=== PATIENT | male | born 1950 | race Caucasian/White ===

== ENCOUNTER 2018-05-17 15:27 | Inpatient (IN) ==
[2018-05-17] MEDS ORDERED: Sod Chloride 0.9% Inj 1,000 ML IV.SIG ONE ×3 (16:02→23:30)
[2018-05-17] MEDS ORDERED: Acetaminophen 325 MG Tablet PO ONE (16:02)
--- NOTE | 2018-05-17 16:19 | ED ---
HPI General Chief complaint: Weakness Stated complaint: Weakness Time Seen by Provider: 05/17/18 16:01 Source: patient Mode of arrival: ambulatory Limitations: no limitations History of Present Illness HPI Narrative: patient has h/o lung ca with mets to bone, adrenal and brain...last chemo 5 days ago.....patient denies cp/v/d/backpain/, but has been feeling gen weakness and decreased appetite. [facility] who [facility]bc and ua, apparently adviced pt to go to hospital because of "low white count" and ua that showed UTI. 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 Complaint: Reports generalized weakness Duration: progressively worsening Location: Reports generalized Migration: Reports none Severity: mild Severity scale (1-10): 2 Quality: Reports aching Relieving factors: none Exacerbating factors: none Associated symptoms: Reports loss of appetite Related Data Home Medications Medication Instructions Recorded Confirmed dexamethasone 2 mg PO BID 05/17/18 05/17/18 diltiazem HCl 240 mg PO DAILY 05/17/18 05/17/18 folic acid 1 mg PO DAILY 05/17/18 05/17/18 meloxicam 7.5 mg PO DAILY 05/17/18 05/17/18 mirtazapine 15 mg PO DAILY 05/17/18 05/17/18 omeprazole 20 mg PO BID 05/17/18 05/17/18 ondansetron HCl [Zofran] 4 mg PO QID PRN 05/17/18 05/17/18 oxycodone-acetaminophen 10 mg PO DIRECTED PRN 05/17/18 05/17/18 prochlorperazine maleate 10 mg PO Q6-8H PRN 05/17/18 05/17/18 Allergies Allergy/AdvReac Type Severity Reaction Status Date / Time No Known Allergies Allergy Verified 05/17/18 15:30 Review of Systems ROS: all other systems reviewed are negative PMFSH History History Provided By: Patient Medical History Medical History Atrial fibrillation (Acute) Family history of bone cancer (Acute) History of chemotherapy (Acute) Hx of brain cancer (Acute) Hx of cancer of lung (Acute) Hx of radiation therapy (Acute) Social History Social History Substance History: No History of Abuse Smoking Status: Former smoker How Often Do You Have a Drink Containing Alcohol: 2 to 4 times a month Recent Travel in [facility] within the Last 8 Weeks: No Recent Out of Country Travel within the Last 8 Weeks: No Immunization History Tetanus Immunization: Unsure Exam Narrative Exam Narrative: GENERAL: elderly male in mild distress SKIN: Warm and dry. HEAD: Atraumatic. Normocephalic. EYES: Pupils equal and round. No scleral icterus. No injection or drainage. ENT: No nasal bleeding or discharge. Mucous membranes pink and moist. NECK: Trachea midline. No JVD. CARDIOVASCULAR: Tachycardic rate regular rhythm. no rubs or gallops RESPIRATORY: No accessory muscle use. Clear to auscultation. Breath sounds equal bilaterally. GASTROINTESTINAL: Abdomen soft, non-tender, nondistended. No rebound or guarding MUSCULOSKELETAL: Extremities without clubbing, cyanosis, or edema. No obvious deformities. NEUROLOGICAL: Awake and alert. No obvious cranial nerve deficits. Motor grossly within normal limits. Five out of 5 muscle strength in the arms and legs. Normal speech. PSYCHIATRIC: Appropriate mood and affect; insight and judgment normal. Course Initial Documented Vital Signs Temperature 100.3 F H 05/17/18 15:30 Pulse Rate 127 H 05/17/18 15:30 Respiratory Rate 18 05/17/18 15:30 Blood Pressure 97/61 L 05/17/18 15:30 Pulse Oximetry 92 L 05/17/18 15:30 Last Documented Vital Signs Temperature 99.2 F 05/17/18 17:08 Pulse Rate 101 H 05/17/18 17:08 Respiratory Rate 18 05/17/18 17:08 Blood Pressure 102/60 05/17/18 17:08 Pulse Oximetry 97 05/17/18 17:08 Critical Care Time Critical Care Time: Yes Total Critical Care Time: 30 Attestation: Aggregate critical care time was 30 minutes. Time to perform other separately billable procedures was not included in the critical care time. My time did not include minutes spent treating any other patients simultaneously or on activities that did not directly contribute to the patient's treatment. The services I provided to this patient were to treat and/or prevent clinically significant deterioration. I provided critical care services requiring my management, as noted below: Chart data review, documentation time, medication orders and management, vital sign assessments/reviewing monitor data, ordering and reviewing lab tests, ordering and interpreting/reviewing x-rays and diagnostic studies, care of the patient and discussion of the patient with the admitting physicians. Medical Decision Making MDM Narrative Medical decision making narrative: Lab interpretation: Pancytopenia noted WBC 1.4, H&H of 8.3/25.2, platelet count of 80, without any leukocytosis however absolute neutropenia noted Electrolytes are within normal limits with the exception of calcium, protein corrected calcium low at 7.2. First set of cardiac enzymes negative. elevated lactic acid 3.1 normal liver enzymes UA pending Chest x-ray read by radiologist as nodular densities projecting over the right hemithorax one in the superior perihilar distribution an additional lesion medially in the right's. Chronic interstitial changes with probable fibrosis in the left lung base. Medical Screen Exam Complete: Yes Emergency Medical Condition: Yes Differential Diagnosis Differential Diagnosis: Sepsis versus Sirs versus UTI versus pneumonia versus electrolyte abnormalities versus dehydration versus anemia versus neutropenic fever Medical Records Medical records reviewed: Yes I reviewed the patient's medical records. Lab Data Result diagrams: 05/17/18 16:42 05/17/18 16:42 Lab Results 05/17/18 05/17/18 05/17/18 Range/Units 16:20 16:42 16:42 CBC w Diff Slide review pending WBC 1.4 L (4.0-11.0) th/mm3 RBC 2.75 L (4.50-5.90) mil/mm3 Hgb 8.3 L (13.0-17.0) gm/dL Hct 25.2 L (39.0-51.0) % MCV 91.7 (80.0-100.0) fL MCH 30.1 (27.0-34.0) pg MCHC 32.8 (32.0-36.0) % RDW 20.3 H (11.6-17.2) % Plt Count 80 L (150-450) th/mm3 MPV 6.8 L (7.0-11.0) fL Neut % (Auto) 69.9 (16.0-70.0) % Lymph % (Auto) 14.5 (9.0-44.0) % [place] % (Auto) 14.4 H (0.0-8.0) % Eos % (Auto) 0.9 (0.0-4.0) % Baso % (Auto) 0.3 (0.0-2.0) % Neut # (Auto) 1.0 L (1.8-7.7) th/mm3 Lymph # (Auto) 0.2 L (1.0-4.8) th/mm3 [place] # (Auto) 0.2 (0.0-0.9) th/mm3 Eos # (Auto) 0.0 (0.0-0.4) th/mm3 Baso # (Auto) 0.0 (0.0-0.2) th/mm3 WBC Differential Manual diff final Seg Neuts % (Manual) 65 (16-70) % Band Neuts % (Manual) 9 H (0-6) % Lymphocytes % (Manual) 19 (9-44) % Monocytes % (Manual) 5 (0-8) % Basophils % (Manual) 1 (0-2) % Metamyelocytes % (Man) 1 (0-1) % Abs Neuts (Manual) 1.1 L (1.8-7.7) th/mm3 Differential Comment . Platelet Estimate Low L (Normal) Platelet Morphology Normal (Normal) RBC Morphology Normal (Normal) Sodium 131 L (136-145) meq/L Potassium 3.6 (3.5-5.1) meq/L Chloride 97 L (98-107) meq/L Carbon Dioxide 21.2 (21.0-32.0) meq/L Anion Gap 13 (5-15) meq/L BUN 16 (7-18) mg/dL Creatinine 1.10 (0.60-1.30) mg/dL Estimated GFR 66 L (>89) mL/min POC Glucose 161 H (68-110) mg/dl Random Glucose 156 H (74-106) mg/dL Lactic Acid (0.4-2.0) mmol/L Calcium 6.8 L* (8.5-10.1) mg/dL Prot Corrected Calcium 7.2 L* (8.5-10.1) mg/dL Total Bilirubin 0.7 (0.2-1.0) mg/dL AST 19 (15-37) U/L ALT 30 (12-78) U/L Alkaline Phosphatase 101 (45-117) U/L Total Creatine Kinase 30 L (39-308) U/L Troponin I Less than 0.02 L (0.02-0.05) ng/mL Total Protein 6.4 (6.4-8.2) g/dL Albumin 2.2 L (3.4-5.0) g/dL 05/17/18 Range/Units 16:42 CBC w Diff WBC (4.0-11.0) th/mm3 RBC (4.50-5.90) mil/mm3 Hgb (13.0-17.0) gm/dL Hct (39.0-51.0) % MCV (80.0-100.0) fL MCH (27.0-34.0) pg MCHC (32.0-36.0) % RDW (11.6-17.2) % Plt Count (150-450) th/mm3 MPV (7.0-11.0) fL Neut % (Auto) (16.0-70.0) % Lymph % (Auto) (9.0-44.0) % [place] % (Auto) (0.0-8.0) % Eos % (Auto) (0.0-4.0) % Baso % (Auto) (0.0-2.0) % Neut # (Auto) (1.8-7.7) th/mm3 Lymph # (Auto) (1.0-4.8) th/mm3 [place] # (Auto) (0.0-0.9) th/mm3 Eos # (Auto) (0.0-0.4) th/mm3 Baso # (Auto) (0.0-0.2) th/mm3 WBC Differential Seg Neuts % (Manual) (16-70) % Band Neuts % (Manual) (0-6) % Lymphocytes % (Manual) (9-44) % Monocytes % (Manual) (0-8) % Basophils % (Manual) (0-2) % Metamyelocytes % (Man) (0-1) % Abs Neuts (Manual) (1.8-7.7) th/mm3 Differential Comment Platelet Estimate (Normal) Platelet Morphology (Normal) RBC Morphology (Normal) Sodium (136-145) meq/L Potassium (3.5-5.1) meq/L Chloride (98-107) meq/L Carbon Dioxide (21.0-32.0) meq/L Anion Gap (5-15) meq/L BUN (7-18) mg/dL Creatinine (0.60-1.30) mg/dL Estimated GFR (>89) mL/min POC Glucose (68-110) mg/dl Random Glucose (74-106) mg/dL Lactic Acid 3.1 H (0.4-2.0) mmol/L Calcium (8.5-10.1) mg/dL Prot Corrected Calcium (8.5-10.1) mg/dL Total Bilirubin (0.2-1.0) mg/dL AST (15-37) U/L ALT (12-78) U/L Alkaline Phosphatase (45-117) U/L Total Creatine Kinase (39-308) U/L Troponin I (0.02-0.05) ng/mL Total Protein (6.4-8.2) g/dL Albumin (3.4-5.0) g/dL Imaging Data Radiologist's impression: Chest X-Ray 05/17/18 16:02 CONCLUSION: 1. There appear to be some nodular densities projecting over the right hemithorax, one in the superior perihilar distribution and an additional lesion medially in the right apex. I would recommend a contrasted CT scan of the chest for further evaluation. 2. Chronic interstitial changes with probable fibrosis in the left lung base. 3. Rounded 2 cm calcification in the left upper abdominal quadrant may be related to the spleen. This area can probably be evaluated on CT of the chest as well. ECG Data EKG Prior to Arrival: No Attestation: I personally reviewed and interpreted this ECG as follows: Prior ECG tracings: not available for review Interpretation: Sinus tachycardia, 112 bpm, normal intervals, nonspecific ST-T wave changes, no acute ST elevation [place] pattern noted. Discharge Plan Discharge Disposition Patient Disposition: 30 Still Patient Discharge Condition Condition: Fair Discharge Details Diagnosis: Sepsis, Hypocalcemia, Medication-induced pancytopenia Physicians Team ED Provider: Jah Kauffman Primary Care Provider: Primary Care AbdiaziziToshia Rxs /Orders / Referrals /Forms Prescriptions: No Action oxycodone-acetaminophen 10 mg PO DIRECTED PRN (Reason: Pain) RF: 0 meloxicam 7.5 mg Tablet 7.5 mg PO DAILY RF: 0 ondansetron HCl [Zofran] 4 mg Tablet 4 mg PO QID PRN (Reason: Nausea) RF: 0 prochlorperazine maleate 10 mg Tablet 10 mg PO Q6-8H PRN (Reason: Nausea) RF: 0 dexamethasone 2 mg Tablet 2 mg PO BID RF: 0 omeprazole 20 mg Capsule,Delayed Release(Dr/Ec) 20 mg PO BID RF: 0 folic acid 1 mg Tablet 1 mg PO DAILY RF: 0 mirtazapine 15 mg Tablet 15 mg PO DAILY RF: 0 diltiazem HCl 240 mg Tablet Extended Release 24 Hr 240 mg PO DAILY RF: 0 Discharge Interventions Interventions: Vital Signs Last Done: 05/17/18 17:08 Status ED Status: With Doctor
--- NOTE | 2018-05-17 16:30 | XR ---
EXAM DATE: 05/17/2018 4:16 PM EDT AGE/SEX: 68 years / Male INDICATIONS: Cough and weakness. CLINICAL DATA: This is the patient's initial encounter. Patient reports that signs and symptoms have been present for 2 days and indicates a pain score of 0/10. MEDICAL/SURGICAL HISTORY: Carcinoma, lung. A-fib. None. [place] [facility] [place]. . FINDINGS: A single AP view of the chest demonstrates the lungs to be symmetrically aerated with no confluent in filtrate. There is some chronic interstitial changes with probable fibrosis in the left lung base. No dular densities now project over the right hemithorax, the largest in the superior perihilar distribu tion measuring 3.3 cm in diameter. Heart size is prominent but appears to be well compensated. 2 cm r im calcified density projecting over the left upper abdominal quadrant may be related to the spleen CONCLUSION: 1. There appear to be some nodular densities projecting over the right hemithorax, one in the superi or perihilar distribution and an additional lesion medially in the right apex. I would recommend a co ntrasted CT scan of the chest for further evaluation. 2. Chronic interstitial changes with probable fibrosis in the left lung base. 3. Rounded 2 cm calcification in the left upper abdominal quadrant may be related to the spleen. Thi s area can probably be evaluated on CT of the chest as well. Electronically signed by: Serafin Vera MD 05/17/2018 4:28 PM EDT
[2018-05-17 16:52] LABS: Baso % (Auto) 0.3 % (0.0-2.0); Eos % (Auto) 0.9 % (0.0-4.0); Hematocrit 25.2 % (39.0-51.0); Hemoglobin 8.3 gm/dL (13.0-17.0); Lymph # (Auto) 0.2 th/mm3 (1.0-4.8); Lymph % (Auto) 14.5 % (9.0-44.0); Mean Corpuscular HGB Conc 32.8 % (32.0-36.0); Mean Corpuscular Hemoglobin 30.1 pg (27.0-34.0); Mean Corpuscular Volume 91.7 fL (80.0-100.0); Mean Platelet Volume 6.8 fL (7.0-11.0); Mono # (Auto) 0.2 th/mm3 (0.0-0.9); Mono % (Auto) 14.4 % (0.0-8.0); Neut % (Auto) 69.9 % (16.0-70.0); Platelet Count 80 th/mm3 (150-450); Red Blood Count 2.75 mil/mm3 (4.50-5.90); Red Cell Distribution Width 20.3 % (11.6-17.2); White Blood Count 1.4 th/mm3 (4.0-11.0)
[2018-05-17 17:01] LABS: Chloride 97 meq/L (98-107); Potassium 3.6 meq/L (3.5-5.1); Sodium 131 meq/L (136-145)
[2018-05-17 17:11] LABS: Lymphocytes 19 % (9-44); Metamyelocytes 1 % (0-1); Monocytes 5 % (0-8)
[2018-05-17 17:12] LABS: Platelet Morphology Normal (Normal); RBC Morphology Normal (Normal)
[2018-05-17 17:19] LABS: Alanine Aminotransferase 30 U/L (12-78); Albumin 2.2 g/dL (3.4-5.0); Alkaline Phosphatase 101 U/L (45-117); Anion Gap 13 meq/L (5-15); Aspartate Aminotransferase 19 U/L (15-37); Blood Urea Nitrogen 16 mg/dL (7-18); Calcium 6.8 mg/dL (8.5-10.1); Carbon Dioxide 21.2 meq/L (21.0-32.0); Glomerular Filtration Rate 66 mL/min (>89); Glucose,Random 156 mg/dL (74-106); Total Protein 6.4 g/dL (6.4-8.2)
[2018-05-17 17:21] LABS: Creatine Kinase 30 U/L (39-308)
[2018-05-17] MEDS ORDERED: GENTAMICIN IV.SIG ONE (18:50)
[2018-05-17] MEDS ORDERED: SODIUM CHLOR 0.9% IV.SIG ONE (18:50)
[2018-05-17] MEDS ORDERED: Zolpidem Tartrate 5 MG Tablet PO PRN (18:55)
[2018-05-17] MEDS ORDERED: Bisacodyl 10 MG Supp RECTAL PRN (18:55)
[2018-05-17] MEDS ORDERED: Acetaminophen 325 MG Tablet PO PRN (18:55)
[2018-05-17] MEDS ORDERED: oxyCODONE/Acetaminophen 10/325 Tablet PO PRN (19:06)
[2018-05-17] MEDS: Sod Chloride 0.9% Inj 1,000 ML IV.CONT SCH (20:24)
[2018-05-17] MEDS: Pantoprazole Sodium 20 MG DR Tablet PO SCH (20:48)
[2018-05-17] MEDS: Senna/Docusate Sodium 8.6/50 MG Tablet PO SCH (20:48)
[2018-05-17] MEDS: Mirtazapine 15 MG Tablet PO SCH (21:05)
[2018-05-18 01:04] LABS: Bilirubin,Urine Negative (Negative); Clarity,Urine Clear (Clear); Color,Urine Yellow (Yellw/Straw); Glucose,Urine (UA) Negative (Negative); Leukocyte Esterase,Urine Small (Negative); Nitrite,Urine Negative (Negative); Specific Gravity,Urine 1.015 (1.002-1.035); Urobilinogen,Urine 0.2 mg/dL (Less than 2)
[2018-05-18 01:11] LABS: Bacteria,Urine Moderate /hpf; RBC,Urine 0-3 /hpf (0-3); Squamous Epithelial Cell,Urine 0-5 /hpf (0-5); WBC,Urine 21-50 /hpf (0-5)
[2018-05-18] MEDS ORDERED: Sodium Chloride 0.9% 2 ML Flush PRN IV.FLUSH (01:22)
[2018-05-18] MEDS: Aztreonam Inj 2 GM in Sodium Chloride 0.9% Inj 100 ML IV.SIG SCH ×3 (02:01→18:51)
[2018-05-18 05:30] LABS: Alanine Aminotransferase 23 U/L (12-78); Albumin 1.8 g/dL (3.4-5.0); Alkaline Phosphatase 89 U/L (45-117); Anion Gap 10 meq/L (5-15); Aspartate Aminotransferase 17 U/L (15-37); Blood Urea Nitrogen 16 mg/dL (7-18); Calcium 6.7 mg/dL (8.5-10.1); Carbon Dioxide 20.8 meq/L (21.0-32.0); Chloride 106 meq/L (98-107); Glomerular Filtration Rate Greater Than 89 mL/min (>89); Glucose,Random 102 mg/dL (74-106); Potassium 3.4 meq/L (3.5-5.1); Sodium 137 meq/L (136-145); Total Protein 5.5 g/dL (6.4-8.2)
[2018-05-18 05:34] LABS: Mean Corpuscular Hemoglobin 31.7 pg (27.0-34.0); Mean Corpuscular Volume 90.6 fL (80.0-100.0); Mean Platelet Volume 7.5 fL (7.0-11.0); Platelet Count 53 th/mm3 (150-450); Red Blood Count 2.21 mil/mm3 (4.50-5.90); White Blood Count 1.1 th/mm3 (4.0-11.0)
[2018-05-18] MEDS: Sod Chloride 0.9% Inj 1,000 ML IV.CONT SCH ×2 (05:35→14:54)
[2018-05-18 06:15] LABS: Lymphocytes 21 % (9-44); Metamyelocytes 1 % (0-1); Monocytes 13 % (0-8); Tallied Nucleated RBC 1 (0-0)
[2018-05-18 06:16] LABS: Dimorphic RBC Present; Ovalocytes 1+; Platelet Morphology Normal (Normal)
[2018-05-18] MEDS ORDERED: Mirtazapine 15 MG Tablet PO SCH (09:00)
[2018-05-18] MEDS: Senna/Docusate Sodium 8.6/50 MG Tablet PO SCH ×2 (09:15→20:18)
[2018-05-18] MEDS: Pantoprazole Sodium 20 MG DR Tablet PO SCH ×2 (09:15→20:18)
--- NOTE | 2018-05-18 09:24 | P.HPFP ---
History of Present Illness Primary Care Physician: Dr. Nini Amador ([place]) History of Present Illness: This is a very pleasant 68 yo Male who was diagnosed with lung cancer in January 07. History is provided from the patient and his as well as [facility] plans; [facility] records are not available at this time. He has been undergoing treatment with Dr. Nini Amador at the [facility] in [facility]. He finished a treatment with chemotherapy last . but does not remember the name of the drug. He does remember that he was treated with Ketruda for about a year without side effects. 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 In it was discovered he brain brain metastasis which was treated with radiation. Yesterday he was feeling very week, had very little to drink and was not urinating much, so he went to the [facility] where he reports they did a UA. When he came home from the clinic, he was unable to stand on his own, started to slide to the ground, however his son stopped him from falling. He then presented to the [place] ED. UA was indicative of infection. He received azactam and gentamicin 2 L NS after BC were drawn. Initial lactic acid was 3.1. Over night he had been hypotensive, and he received an additional 3 boluses of 1 L NS overnight for hypotension. Lactic acid has now trended down to normal with stable blood pressure. He is on azactam and cefepime, and vancomycin has been added. He remains very weak, pancytopenic with hemoglobin of 7. Initial anaerobic blood culture has returned with gram negative rods. He also has history of rectal polypoid cancers and large polyps followed by Dr Kevin for 15 years with colonoscopies very 3-4 years (last 01/2017). - Diagnosis (1) UTI (urinary tract infection) (2) Pancytopenia due to chemotherapy (3) Sepsis (4) Hypocalcemia Inpatient Certification: I certify that the inpatient services were ordered in accordance with Medicare regulations governing the order. This includes certification that hospital inpatient services are reasonable and necessary and in the case of services not specified as inpatient-only under 42 CFR 419.22(n), that they are appropriately provided as inpatient services in accordance to with the 2-midnight benchmark under 43 CFR 412.3(e) Estimated Total Length of Stay (Days): 3 Plans for Post Hospital Care: SNF Review of Systems Constitutional: Reports malaise Cardiovascular: Reports chest pain, Reports shortness of breath with activity ( mild, stable at baseline), Denies rapid, pounding, or irregular heartbeat Respiratory: Reports excessive phlegm production, Denies pain on inspiration Gastrointestinal: Reports abdominal pain, Denies bright, red blood in stools Genitourinary: Reports decreased urination, Reports difficulty urinating Musculoskeletal: Reports back pain, Reports muscle weakness Skin/Breast: Denies rash, Denies unusual bruising Neurologic: Reports abnormal walking, Reports unsteadiness Psychiatric: Denies panic attacks, Denies thoughts of hurting/killing yourself Endocrine: Denies increased hunger, Denies increased thirst Hematologic/Lymphatic: Reports easy bruising, Denies enlarged lymph nodes PMFSH - History History Provided By: Patient, Family Member - Medical History Medical History: Medical History (Last Updated 05/18/18 @ 12:43 by Jeanne Tai MD) COPD (chronic obstructive pulmonary disease) (Acute) Chronic interstitial lung disease DJD (degenerative joint disease), lumbar GERD (gastroesophageal reflux disease) HLD (hyperlipidemia) History of chemotherapy History of esophageal stricture Hx of radiation therapy Hypertension 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 cancer metastatic to brain Lung cancer, primary, with metastasis from lung to other site Mild chronic obstructive pulmonary disease Osteoarthritis Overlapping malignant neoplasm of rectum, anus and anal canal Paroxysmal atrial fibrillation Prediabetes Pulmonary fibrosis Rectal polyp - Surgical History Surgical History: Surgical History (Last Updated 05/18/18 @ 09:23 by Jeanne Tai MD) History of total left knee replacement (TKR) - Family History Family History: Family History (Last Reviewed 05/18/18 @ 12:14 by Jeanne Tai MD) Other Family history normal - Social History I have reviewed the patient's Social History: Yes - Tobacco History Second Hand Smoke Exposure: No Tobacco Use In Past 30 Days: No Smoking Status: Former smoker (50 pack year tobacco quit in December 2016) - Alcohol History How Often Do You Have a Drink Containing Alcohol: 2 to 4 times a month - Substance Use History Substance History: No History of Abuse - Travel History Recent Travel in the [place] Within the Last 8 Weeks: No Recent Travel Out of the Country Within the Last 8 Weeks: No - Immunization History Tetanus Immunization: Unsure Hx Influenza Vaccine This Season: Yes Medications and Allergies Active Medications: Active Medications Acetaminophen (Tylenol) 650 mg PO Q4H PRN PRN Reason: Temp > 100.4 Al Hydroxide/Mg Hydroxide (Milk Of Magnesia Liq) 30 ml PO Q12H PRN PRN Reason: Mild Constipation Albuterol (Duoneb Neb (Prn)) 1 ampul NEB Q4HR NEB PRN PRN Reason: wheeze, sob Bisacodyl (Dulcolax Supp) 10 mg RECTAL DAILY PRN PRN Reason: SEVERE CONSITIPATION Dexamethasone (Decadron) 2 mg PO BID [facility] Last Admin: 05/17/18 21:05 Dose: 2 mg Folic Acid (Folic Acid) 1 mg PO DAILY [facility] Cefepime HCl 2,000 mg/ Sodium (Chloride) 100 mls @ 200 mls/hr IV.SIG Q8H [facility] Last Infusion: 05/18/18 04:33 Dose: Infused Aztreonam 2 gm/ Sodium (Chloride) 100 mls @ 200 mls/hr IV.SIG Q8H [facility] Last Infusion: 05/18/18 02:31 Dose: Infused Sodium Chloride (Ns Inj) 1,000 mls @ 100 mls/hr IV.CONT .Q10H [facility] Last Infusion: 05/18/18 06:18 Dose: Infused Lactulose (Lactulose Liq) 30 ml PO DAILY PRN PRN Reason: SEVERE CONSITIPATION Mirtazapine (Remeron) 15 mg PO HS [facility] Last Admin: 05/17/18 21:05 Dose: 15 mg Miscellaneous (Pill Splitter) 1 each OTHER UNSCH [facility] Last Admin: 05/17/18 21:05 Dose: 1 each Ondansetron HCl (Zofran Inj) 4 mg IV.PUSH Q6H PRN PRN Reason: NAUSEA OR VOMITING Oxycodone/Acetaminophen (Percocet 10/325 Mg) 10 tab PO Q6H PRN PRN Reason: Pain 1-5 Pantoprazole Sodium (Protonix) 20 mg PO BID [facility] Last Admin: 05/17/18 20:48 Dose: 20 mg Senna/Docusate Sodium (Hermila-Colace) 1 tab PO BID [facility] Last Admin: 05/17/18 20:48 Dose: 1 tab Sennosides (Senokot) 17.2 mg PO Q12H PRN PRN Reason: Moderate Constipation Sodium Chloride (Ns Flush) 2 ml IV.FLUSH BID MONIK Sodium Chloride (Ns Flush) 2 ml IV.FLUSH PRN PRN PRN Reason: FLUSH AFTER USING IV ACCESS Zolpidem Tartrate (Ambien) 5 mg PO HS PRN PRN Reason: INSOMNIA Last Admin: 05/17/18 22:03 Dose: 5 mg Allergies Allergy/AdvReac Type Severity Reaction Status Date / Time No Known Allergies Allergy Verified 05/17/18 15:30 Home Medications Medication Instructions Recorded Confirmed Type dexamethasone 2 mg PO BID 05/17/18 05/17/18 History diltiazem HCl 240 mg PO DAILY 05/17/18 05/17/18 History folic acid 1 mg PO DAILY 05/17/18 05/17/18 History meloxicam 7.5 mg PO DAILY 05/17/18 05/17/18 History mirtazapine 15 mg PO DAILY 05/17/18 05/17/18 History omeprazole 20 mg PO BID 05/17/18 05/17/18 History ondansetron HCl [Zofran] 4 mg PO QID PRN 05/17/18 05/17/18 History oxycodone-acetaminophen 10 mg PO DIRECTED PRN 05/17/18 05/17/18 History prochlorperazine maleate 10 mg PO Q6-8H PRN 05/17/18 05/17/18 History Exam Vital signs: Vital Signs 05/17/18 15:30 05/17/18 15:57 05/17/18 16:05 Temperature 100.3 F H Pulse Rate 127 H 118 H Respiratory Rate 18 18 Blood Pressure 97/61 L 92/60 L Pulse Oximetry 92 L 95 05/17/18 17:08 05/17/18 18:33 05/17/18 19:22 Temperature 99.2 F 98.2 F 98.1 F Pulse Rate 101 H 81 76 Respiratory Rate 18 16 20 Blood Pressure 102/60 103/59 L 93/57 L Pulse Oximetry 97 96 05/17/18 20:00 05/17/18 20:50 05/17/18 21:00 Temperature 97.6 F Pulse Rate 74 72 Respiratory Rate 11 L 22 Blood Pressure 100/58 L 101/56 L Pulse Oximetry 100 94 L 98 05/17/18 22:00 05/17/18 23:00 05/18/18 00:00 Temperature 98.6 F Pulse Rate 89 79 86 Respiratory Rate 30 H 25 H 20 Blood Pressure 92/53 L 74/38 L 104/64 Pulse Oximetry 91 L 91 L 93 L 05/18/18 01:00 05/18/18 02:00 05/18/18 02:05 Temperature Pulse Rate 122 H 114 H 122 H Respiratory Rate 27 H 25 H Blood Pressure 140/67 102/55 L Pulse Oximetry 93 L 93 L 05/18/18 03:00 05/18/18 04:00 05/18/18 05:00 Temperature 105 F H 100.9 F H Pulse Rate 100 H 91 H Respiratory Rate 21 32 H 19 Blood Pressure 100/50 L 100/50 L 87/52 L Pulse Oximetry 93 L 96 05/18/18 05:39 05/18/18 07:00 Temperature 100.9 F H Pulse Rate 90 82 Respiratory Rate 18 19 Blood Pressure 108/57 L Pulse Oximetry 94 L 95 Intake & Output 05/17/18 05/18/18 05/18/18 18:59 06:59 18:59 Intake Total 1100 / 1100 4651.5 / 4651.5 Output Total 700 / 700 Balance 1100 / 1100 3951.5 / 3951.5 Weight 92.079 kg 93.8 kg Intake: IV 1100 / 1100 4411.5 / 4411.5 NS Inj 1,000 ML @ 100 mls/hr IV 1999 .CONT .Q10H MONIK Rx#:[id number] Azactam Inj 1,000 MG In NS Inj 100 / 100 100 ML @ 200 mls/hr IV.SIG STAT STA Rx#:[id number] Azactam Inj 2 GM In NS Inj 100 100 / 100 ML @ 200 mls/hr IV.SIG Q8H MONIK Rx#:[id number] Maxipime Inj 2,000 MG In NS Inj 200 / 200 100 ML @ 200 mls/hr IV.SIG Q8H MONIK Rx#:[id number] Gentamicin Inj 460 MG In NS Inj 111.5 / 111.5 100 ML @ 100 mls/hr IV.SIG ONCE ONE Rx#:[id number] NS Inj 1,000 ML @ As Directed 1000 / 1000 1999 IV.SIG .Q0M ONE Rx#:[id number] Oral 240 / 240 Output: Urine 700 / 700 Other: # Incontinent Voids 1 # Urine Diapers 1 Date of Last Bowel Movement 05/17/18 # Bowel Movements 1 Weight On Admission 93.8 kg Narrative: GENERAL: This is a fatigued appearing Caucasina male who appears somewhat older than stated age. HEENT: EOMI, no injection, no scleral icterus, dry mucus membranes without lesions, OP patent. CARDIOVASCULAR: Regular rate and rhythm without murmurs, gallops, or rubs. RESPIRATORY: H has crackles in the left lung base which correlate with the area of pulmonary fibrosis seen on chest xray. Lungs are otherwise CTAB, with normal work of breathing and good air exchange. GASTROINTESTINAL: Abdomen soft, non-tender, nondistended. Normal active bowel sounds MUSCULOSKELETAL: Extremities without clubbing, cyanosis, or edema. Right dorsalis pedis easily palpable, left dorsalis pedis present by doppler. SCDs present. NEURO: Somnolent, but becomes Alert & Oriented with vocal stimulation to place. Moves all ext x4 Results - Labs Result diagrams: 05/18/18 11:15 05/18/18 04:48 Abnormal lab results 05/17/18 05/17/18 05/17/18 Range/Units 16:20 16:42 16:42 WBC 1.4 L (4.0-11.0) th/mm3 RBC 2.75 L (4.50-5.90) mil/mm3 Hgb 8.3 L (13.0-17.0) gm/dL Hct 25.2 L (39.0-51.0) % RDW 20.3 H (11.6-17.2) % Plt Count 80 L (150-450) th/mm3 MPV 6.8 L (7.0-11.0) fL [place] % (Auto) 14.4 H (0.0-8.0) % Neut # (Auto) 1.0 L (1.8-7.7) th/mm3 Lymph # (Auto) 0.2 L (1.0-4.8) th/mm3 Band Neuts % (Manual) 9 H (0-6) % Monocytes % (Manual) (0-8) % Abs Neuts (Manual) 1.1 L (1.8-7.7) th/mm3 Nucleated RBCs/100 WBC (0-0) /100 WBC Platelet Estimate Low L (Normal) Dimorphic RBCs (None) Ovalocytes (None) Sodium 131 L (136-145) meq/L Potassium (3.5-5.1) meq/L Chloride 97 L (98-107) meq/L Carbon Dioxide (21.0-32.0) meq/L Estimated GFR 66 L (>89) mL/min POC Glucose 161 H (68-110) mg/dl Random Glucose 156 H (74-106) mg/dL Lactic Acid (0.4-2.0) mmol/L Calcium 6.8 L* (8.5-10.1) mg/dL Prot Corrected Calcium 7.2 L* (8.5-10.1) mg/dL Total Creatine Kinase 30 L (39-308) U/L Troponin I Less than 0.02 L (0.02-0.05) ng/mL Total Protein (6.4-8.2) g/dL Albumin 2.2 L (3.4-5.0) g/dL Urine Protein (Neg-Trace) mg/dL Urine Occult Blood (Negative) Ur Leukocyte Esterase (Negative) Urine WBC (0-5) /hpf Urine WBC Clumps (None) Urine Bacteria (None) /hpf 05/17/18 05/18/18 05/18/18 Range/Units 16:42 00:52 04:48 WBC 1.1 L (4.0-11.0) th/mm3 RBC 2.21 L (4.50-5.90) mil/mm3 Hgb 7.0 L (13.0-17.0) gm/dL Hct 20.0 L* (39.0-51.0) % RDW 20.0 H (11.6-17.2) % Plt Count 53 L D (150-450) th/mm3 MPV (7.0-11.0) fL [place] % (Auto) (0.0-8.0) % Neut # (Auto) (1.8-7.7) th/mm3 Lymph # (Auto) (1.0-4.8) th/mm3 Band Neuts % (Manual) 12 H (0-6) % Monocytes % (Manual) 13 H (0-8) % Abs Neuts (Manual) 0.7 L (1.8-7.7) th/mm3 Nucleated RBCs/100 WBC 1 H (0-0) /100 WBC Platelet Estimate Low L (Normal) Dimorphic RBCs Present H (None) Ovalocytes 1+ H (None) Sodium (136-145) meq/L Potassium (3.5-5.1) meq/L Chloride (98-107) meq/L Carbon Dioxide (21.0-32.0) meq/L Estimated GFR (>89) mL/min POC Glucose (68-110) mg/dl Random Glucose (74-106) mg/dL Lactic Acid 3.1 H (0.4-2.0) mmol/L Calcium (8.5-10.1) mg/dL Prot Corrected Calcium (8.5-10.1) mg/dL Total Creatine Kinase (39-308) U/L Troponin I (0.02-0.05) ng/mL Total Protein (6.4-8.2) g/dL Albumin (3.4-5.0) g/dL Urine Protein 30 H (Neg-Trace) mg/dL Urine Occult Blood Small H (Negative) Ur Leukocyte Esterase Small H (Negative) Urine WBC 21-50 H (0-5) /hpf Urine WBC Clumps Few H (None) Urine Bacteria Moderate H (None) /hpf 05/18/18 Range/Units 04:48 WBC (4.0-11.0) th/mm3 RBC (4.50-5.90) mil/mm3 Hgb (13.0-17.0) gm/dL Hct (39.0-51.0) % RDW (11.6-17.2) % Plt Count (150-450) th/mm3 MPV (7.0-11.0) fL [place] % (Auto) (0.0-8.0) % Neut # (Auto) (1.8-7.7) th/mm3 Lymph # (Auto) (1.0-4.8) th/mm3 Band Neuts % (Manual) (0-6) % Monocytes % (Manual) (0-8) % Abs Neuts (Manual) (1.8-7.7) th/mm3 Nucleated RBCs/100 WBC (0-0) /100 WBC Platelet Estimate (Normal) Dimorphic RBCs (None) Ovalocytes (None) Sodium (136-145) meq/L Potassium 3.4 L (3.5-5.1) meq/L Chloride (98-107) meq/L Carbon Dioxide 20.8 L (21.0-32.0) meq/L Estimated GFR (>89) mL/min POC Glucose (68-110) mg/dl Random Glucose (74-106) mg/dL Lactic Acid (0.4-2.0) mmol/L Calcium 6.7 L* (8.5-10.1) mg/dL Prot Corrected Calcium 7.5 L (8.5-10.1) mg/dL Total Creatine Kinase (39-308) U/L Troponin I (0.02-0.05) ng/mL Total Protein 5.5 L D (6.4-8.2) g/dL Albumin 1.8 L (3.4-5.0) g/dL Urine Protein (Neg-Trace) mg/dL Urine Occult Blood (Negative) Ur Leukocyte Esterase (Negative) Urine WBC (0-5) /hpf Urine WBC Clumps (None) Urine Bacteria (None) /hpf Short CBC 05/17/18 05/18/18 Range/Units 16:42 04:48 WBC 1.4 L 1.1 L (4.0-11.0) th/mm3 Hgb 8.3 L 7.0 L (13.0-17.0) gm/dL Hct 25.2 L 20.0 L* (39.0-51.0) % Plt Count 80 L 53 L D (150-450) th/mm3 BMP 05/17/18 05/18/18 16:42 04:48 Sodium 131 L 137 Potassium 3.6 3.4 L Chloride 97 L 106 D Carbon Dioxide 21.2 20.8 L BUN 16 16 Creatinine 1.10 0.81 Calcium 6.8 L* 6.7 L* Cardiac Enzymes 05/17/18 Range/Units 16:42 Total Creatine Kinase 30 L (39-308) U/L Troponin I Less than 0.02 L (0.02-0.05) ng/mL Liver Function 05/17/18 05/18/18 Range/Units 16:42 04:48 Total Bilirubin 0.7 0.7 (0.2-1.0) mg/dL AST 19 17 (15-37) U/L ALT 30 23 (12-78) U/L Alkaline Phosphatase 101 89 (45-117) U/L Albumin 2.2 L 1.8 L (3.4-5.0) g/dL Urine 05/18/18 Range/Units 00:52 Urine Color Yellow (Yellw/Straw) Urine Clarity Clear (Clear) Urine pH 6.0 (5.0-8.5) Ur Specific [place] 1.015 (1.002-1.035) Urine Protein 30 H (Neg-Trace) mg/dL Urine Glucose (UA) Negative (Negative) mg/dL - Imaging Impressions Chest X-Ray 05/17/18 16:02 CONCLUSION: 1. There appear to be some nodular densities projecting over the right hemithorax, one in the superior perihilar distribution and an additional lesion medially in the right apex. I would recommend a contrasted CT scan of the chest for further evaluation. 2. Chronic interstitial changes with probable fibrosis in the left lung base. 3. Rounded 2 cm calcification in the left upper abdominal quadrant may be related to the spleen. This area can probably be evaluated on CT of the chest as well. Caprini VTE Risk Assessment Caprini VTE Risk Assessment: Moderate/High Risk (score >= 2) VTE Pharmacological Exception Reason: Thrombocytopenia (<50), High risk for bleeding Caprini Risk Assessment Model: Point Value = 1 Point Value = 2 Point Value = 3 Point Value = 5 Age 41-60 Minor surgery BMI > 25 kg/m2 Swollen legs Varicose veins or History of unexplained or recurrent spontaneous Oral contraceptives or hormone replacement Sepsis (< 1 month) Serious lung disease, including pneumonia (< 1 month) Abnormal pulmonary function Acute myocardial infarction Congestive heart failure (< 1 month) History of inflammatory bowel disease Medical patient at bed rest Age 61-74 Arthroscopic surgery Major open surgery (> 45 min) Laparoscopic surgery (> 45 min) Malignancy Confined to bed (> 72 hours) Immobilizing plaster cast Central venous access Age >= 75 History of VTE Family history of VTE Factor V Leiden Prothrombin [id number] Lupus anticoagulant Anticardiolipin antibodies Elevated serum homocysteine Heparin-induced thrombocytopenia Other congenital or acquired thrombophilia Stroke (< 1 month) Elective arthroplasty Hip, pelvis, or leg fracture Acute spinal cord injury (< 1 month) Prophylaxis Regimen: Total Risk Factor Score Risk Level Prophylaxis Regimen 0-1 Low Early ambulation 2 Moderate Order ONE of the following: *Sequential Compression Device (SCD) *Heparin 5000 units SQ BID 3-4 Higher Order ONE of the following medications: *Heparin 5000 units SQ TID *Enoxaparin/Lovenox 40 mg SQ daily (WT < 150 kg, CrCl > 30 mL/min) *Enoxaparin/Lovenox 30 mg SQ daily (WT < 150 kg, CrCl > 10-29 mL/min) *Enoxaparin/Lovenox 30 mg SQ BID (WT < 150 kg, CrCl > 30 mL/min) AND/OR *Sequential Compression Device (SCD) 5 or more Highest Order ONE of the following medications: *Heparin 5000 units SQ TID (Preferred with Epidurals) *Enoxaparin/Lovenox 40 mg SQ daily (WT < 150 kg, CrCl > 30 mL/min) *Enoxaparin/Lovenox 30 mg SQ daily (WT < 150 kg, CrCl > 10-29 mL/min) *Enoxaparin/Lovenox 30 mg SQ BID (WT < 150 kg, CrCl > 30 mL/min) AND *Sequential Compression Device (SCD) Assessment and Plan - Assessment (1) UTI (urinary tract infection) Code(s): N39.0 - Urinary tract infection, site not specified Status: Acute (2) Pancytopenia due to chemotherapy Code(s): D61.810 - Antineoplastic chemotherapy induced pancytopenia Status: Acute (3) Sepsis Code(s): A41.9 - Sepsis, unspecified organism Status: Acute (4) Hypocalcemia Code(s): E83.51 - Hypocalcemia Status: Acute - Assessment and Plan Sepsis likely due to UTI - blood cultures aneorbic initially with gram negative. We will continue with broad antibiotic coverage and consult infectious disease for antibiotic recommendations. Maintain normal blood pressures with bolus as needed. Lactic acid has returned to reji. Lungs are clear. Will check a 2d echo to check LVEF. Pancyotpenia due to chemotherapy due to lung cancer with mets to right hip, adrenal gland, brain (tx'ed with radiation). Hb is 7, I will transfuse 2 units as I think the will help with his energy and fatigue. Will consult hematology for assistance with blood transfusions. [facility]. He is on neutropenic precautions. Paroxysmal afib - reports this happened only once. He remains in [facility] on telemetry. Not a candidate for anticoagulation at this time. MOnitor tele. Hypocalcemia - was treated with calcium gluconate in ER with no improvement. Will repeat calcium gluconate and start calcium carbonate TID and monitor. Hyponatremia - resolved with IVF. Mild COPD -no wheezing, will give duoned as needed. DVT px - SCDs. H&P: Quality - VTE Deep Vein Thrombosis/Pulmonary Embolism Present on Admission: No (3) Sepsis Qualifiers: Sepsis type: sepsis due to unspecified organism Qualified Code(s): A41.9 - Sepsis, unspecified organism
[2018-05-18] MEDS: Folic Acid 1 MG Tablet PO SCH (09:27)
[2018-05-18] MEDS: Sodium Chloride 0.9% 2 ML Flush BID IV.FLUSH SCH ×2 (09:27→22:14)
[2018-05-18 11:26] LABS: Hematocrit 22.8 % (39.0-51.0); Mean Corpuscular HGB Conc 33.1 % (32.0-36.0); Mean Corpuscular Hemoglobin 30.4 pg (27.0-34.0); Mean Corpuscular Volume 91.8 fL (80.0-100.0); Mean Platelet Volume 7.3 fL (7.0-11.0); Platelet Count 62 th/mm3 (150-450); Red Blood Count 2.48 mil/mm3 (4.50-5.90); Red Cell Distribution Width 19.9 % (11.6-17.2); White Blood Count 1.6 th/mm3 (4.0-11.0)
[2018-05-18] MEDS ORDERED: Vancomycin Consult Pharmacy OTHER PRN (11:29)
[2018-05-18 11:32] LABS: Hemoglobin 7.5 gm/dL (13.0-17.0)
[2018-05-18] MEDS ORDERED: Sodium Chlor 0.9% Inj 250 ML IV.SIG SCH (12:00)
--- NOTE | 2018-05-18 13:26 | ECHRPT ---
Indication: Shortness of Breath CONCLUSIONS Normal left ventricular size. Wall thickness is normal. The left ventricular systolic function is normal with an estimated ejection fraction in the range of 55-60%. Right ventricle probably mildly enlarged with moderateli impaired function. Mitral annular calcification is present. [id number] mitral valve regurgitation. There is trace tricuspid valve regurgitation. The estimated pulmonary arterial pressure is 43 mmHg. There is estimated mild pulmonary hypertension present (range 40-50 mmHg). Trivial pulmonary valve regurgitation. There is a small pericardial effusion present. BP: 105 / 62 HR: Rhythm: MEASUREMENTS (Male / Female) Normal Values Technical Quality:Fair 2D ECHO LV Diastolic Diameter PLAX 4.8 cm 4.2 - 5.9 / 3.9 - 5.3 cm LV Systolic Diameter PLAX 3.0 cm IVS Diastolic Thickness 0.9 cm 0.6 - 1.0 / 0.6 - 0.9 cm LVPW Diastolic Thickness 1.0 cm 0.6 - 1.0 / 0.6 - 0.9 cm LV Relative Wall Thickness 0.4 RV Internal Dim ED PLAX 3.3 cm LVOT Diameter 2.2 cm Aortic Root Diameter 3.8 cm LA Systolic Diameter LX 3.5 cm 3.0 - 4.0 / 2.7 - 3.8 cm M-MODE AV Cusp Separation MM 2.3 cm DOPPLER AV Peak Velocity 88.2 cm/s AV Peak Gradient 3.1 mmHg LVOT Peak Velocity 74.0 cm/s LVOT Peak Gradient 2.2 mmHg AV Area Cont Eq pk 3.2 cm Mitral E Point Velocity 73.1 cm/s Mitral A Point Velocity 86.4 cm/s Mitral E to A Ratio 0.8 LV E' Lateral Velocity 5.8 cm/s Mitral E to LV E' Lateral Ratio 12.7 LV E' Septal Velocity 6.1 cm/s Mitral E to LV E' Septal Ratio 11.9 TR Peak Velocity 289.0 cm/s TR Peak Gradient 33.4 mmHg Right Atrial Pressure 10.0 mmHg Pulmonary Artery Systolic Pressu 43.4 mmHg Right Ventricular Systolic Press 43.4 mmHg PV Peak Velocity 89.6 cm/s PV Peak Gradient 3.2 mmHg FINDINGS LEFT VENTRICLE Normal left ventricular size. Wall thickness is normal. The left ventricular systolic function is normal with an estimated ejection fraction in the range of 55-60%. RIGHT VENTRICLE Right ventricle probably mildly enlarged with moderateli impaired function. LEFT ATRIUM The left atrial size is normal. RIGHT ATRIUM The right atrial size is normal. ATRIAL SEPTUM Normal atrial septal thickness without atrial level shunting by limited color doppler interrogation. AORTA The aortic root and proximal ascending aorta are normal in size on limited imaging. MITRAL VALVE Mitral annular calcification is present. [id number] mitral valve regurgitation. AORTIC VALVE Trileaflet aortic valve. No aortic valve stenosis or regurgitation. TRICUSPID VALVE There is trace tricuspid valve regurgitation. The estimated pulmonary arterial pressure is 43 mmHg. There is estimated mild pulmonary hypertension present (range 40-50 mmHg). PULMONARY VALVE Trivial pulmonary valve regurgitation. VESSELS The inferior vena cava is normal in size. PERICARDIUM There is a small pericardial effusion present. Jamie Salazar MD (Electronically Signed) Final Date:18 May 2018 13:26
--- NOTE | 2018-05-18 13:44 | P.CONPAL ---
Consult Service: Palliative Care Requesting Physician: Jeanne Tai Reason for Consult: a. To assist with evaluation and management of symptoms including: Weakness, anorexia, dyspnea, abdominal pain b. To assist medical decision maker(s) with: better understanding of current medical conditions; weighing benefits/burdens of medical treatment options; making medical treatment decisions. 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 Nini Amador at the [facility] and last had chemotherapy 5 days ago. He had previously been treated with Xeloda for a year without side effects but PET scan showed brain metastasis and he was changed back to chemotherapy. At his initial diagnosis he was noted to have metastasis to the adrenal gland and left hip. In December 2017, it was discovered that he also had brain metastasis which has been treated with radiation. At an outpatient visit at the [facility] indicated neutropenia and a urinary tract infection and he was advised to go to the hospital. Diagnostic data on admission * WBC 1.4, hemoglobin 8.3, hematocrit 25.2, platelets 80, sodium 131, potassium 3.6, BUN 16, creatinine 1.10, random glucose 156, calcium 6.8, protein corrected calcium 7.2, normal transaminase, T CK 30, troponin less than 0.02, albumin 2.2, lactic acid 3.1. * Chest x-ray shows some nodular densities projecting over the right hemithorax , one in the superior perihilar distribution and an additional lesion medially in the right apex. Contrasted CT scan recommended for further evaluation. Chronic interstitial changes with probable fibrosis in the left lung. * EKG showed sinus tachycardia at heart rate 112 bpm. * 2D echocardiogram shows ejection fraction 55-60% with mildly enlarged right ventricle with moderate impaired function. Estimated pulmonary artery pressure is 43 mmHg showing mild pulmonary hypertension. Evaluation in the ED showed a positive urinalysis and he received 2 L of normal saline, Azactam and gentamicin after blood cultures were drawn. Presenting lactic acid was 3.1. He was hypotensive overnight and received 3 additional liters of normal saline. Antibiotics were changed to Azactam, vancomycin and cefepime and lactic acid began to trend down. Blood culture shows E. coli. Urine culture is pending. He remains weak, pancytopenic. Initial anaerobic blood culture was returned with gram-negative rods. This is a well-developed, well-nourished male lying in bed on room air , in no acute distress. He is easily arousable but dozes back to sleep quickly. He denies any current pain or dyspnea. He is globally weak and has very little appetite. On admission his complaints of abdominal pain were located in the lower abdomen, constant, worsening with palpation, improving with antibiotics. He has a chronic history of BPH and has been on Flomax for many years. There is no known history of urinary retention, but certainly should be considered in the setting of recurrent UTIs. His states that he tolerates chemotherapy well with minimal side effects. She is aware that the chemotherapy is palliative, not curative. Past medical history COPD Chronic interstitial lung disease DJD GERD Hyperlipidemia Esophageal stricture Hypertension Lung cancer with metastasis to bone, brain, adrenal Osteoarthritis Rheumatoid arthritis Polypoid cancers Paroxysmal atrial fibrillation Prediabetes Pulmonary fibrosis Rectal polyps History of a TIA Surgical history Colonoscopies every 3-4 years with frequent polypectomies Left total knee replacement Rectal polyp resection Social history [id number] tobacco history, quit December 2016. Social alcohol use. No history of abuse. Family history He has 2 living sons that are healthy. . Function/Cognitive Trajectory: He has become weaker over the last year of treatment. He is still able to get around but requires more assistance. He is frequently fatigued and becoming weaker. When chemotherapy was resumed, he became extremely weak and the strength of the chemotherapy had to be reduced. His states that he has been significantly weak since that time. . Review of Systems Constitutional: Reports anorexia, Reports weakness Respiratory: Reports shortness of breath Gastrointestinal: Reports abdominal pain PMFSH - History History Provided By: Patient, Family Member - Medical History Medical History: Medical History (Last Updated 05/18/18 @ 12:43 by Jeanne Tai MD) COPD (chronic obstructive pulmonary disease) (Acute) Chronic interstitial lung disease DJD (degenerative joint disease), lumbar GERD (gastroesophageal reflux disease) HLD (hyperlipidemia) History of chemotherapy History of esophageal stricture Hx of radiation therapy Hypertension 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 cancer metastatic to brain Lung cancer, primary, with metastasis from lung to other site Mild chronic obstructive pulmonary disease Osteoarthritis Overlapping malignant neoplasm of rectum, anus and anal canal Paroxysmal atrial fibrillation Prediabetes Pulmonary fibrosis Rectal polyp - Surgical History Surgical History: Surgical History (Last Updated 05/18/18 @ 09:23 by Jeanne Tai MD) History of total left knee replacement (TKR) - Family History Family History: Family History (Last Reviewed 05/18/18 @ 12:14 by Jeanne Tai MD) Other Family history normal - Tobacco History Second Hand Smoke Exposure: No Tobacco Use In Past 30 Days: No Smoking Status: Former smoker (50 pack year tobacco quit in December 2016) - Alcohol History How Often Do You Have a Drink Containing Alcohol: 2 to 4 times a month - Substance Use History Substance History: No History of Abuse - Travel History Recent Travel in the [place] Within the Last 8 Weeks: No Recent Travel Out of the Country Within the Last 8 Weeks: No - Immunization History Tetanus Immunization: Unsure Hx Influenza Vaccine This Season: Yes Medications and Allergies Active Medications: Active Medications Acetaminophen (Tylenol) 650 mg PO Q4H PRN PRN Reason: Temp > 100.4 Al Hydroxide/Mg Hydroxide (Milk Of Mark Acevedo) 30 ml PO Q12H PRN PRN Reason: Mild Constipation Albuterol (Duoneb Neb (Prn)) 1 ampul NEB Q4HR NEB PRN PRN Reason: wheeze, sob Bisacodyl (Dulcolax Supp) 10 mg RECTAL DAILY PRN PRN Reason: SEVERE CONSITIPATION Calcium Carbonate (Tums Chew) 500 mg CHEW BID MONIK Dexamethasone (Decadron) 2 mg PO BID [facility] Last Admin: 05/18/18 09:13 Dose: 2 mg Folic Acid (Folic Acid) 1 mg PO DAILY MONIK Last Admin: 05/18/18 09:27 Dose: 1 mg Cefepime HCl 2,000 mg/ Sodium (Chloride) 100 mls @ 200 mls/hr IV.SIG Q8H MONIK Last Infusion: 05/18/18 04:33 Dose: Infused Aztreonam 2 gm/ Sodium (Chloride) 100 mls @ 200 mls/hr IV.SIG Q8H MONIK Last Infusion: 05/18/18 10:25 Dose: Infused Sodium Chloride (Ns Inj) 1,000 mls @ 100 mls/hr IV.CONT .Q10H MONIK Last Infusion: 05/18/18 06:18 Dose: Infused Sodium Chloride (Ns Inj) 250 mls @ 15 mls/hr IV.SIG ONCE [facility] Stop: 05/19/18 04:39 Vancomycin HCl 1,700 mg/ (Sodium Chloride) 517 mls @ 250 mls/hr IV.SIG Q12H [facility] Calcium Gluconate 1 gm/ Sodium (Chloride) 110 mls @ 110 mls/hr IV.SIG ONCE ONE Stop: 05/18/18 14:59 Lactulose (Lactulose Liq) 30 ml PO DAILY PRN PRN Reason: SEVERE CONSITIPATION Mirtazapine (Remeron) 15 mg PO HS [facility] Last Admin: 05/17/18 21:05 Dose: 15 mg Miscellaneous (Pill Splitter) 1 each OTHER UNSCH [facility] Last Admin: 05/17/18 21:05 Dose: 1 each Miscellaneous Information ([facility] Ordered Lab Info) 1 each OTHER ONCE ONE Stop: 05/20/18 12:46 Ondansetron HCl (Zofran Inj) 4 mg IV.PUSH Q6H PRN PRN Reason: NAUSEA OR VOMITING Oxycodone/Acetaminophen (Percocet 10/325 Mg) 10 tab PO Q6H PRN PRN Reason: Pain 1-5 Pantoprazole Sodium (Protonix) 20 mg PO BID [facility] Last Admin: 05/18/18 09:15 Dose: 20 mg Pharmacy Profile Note (Vancomycin Consult Pharmacy) 1 each OTHER UNSCH PRN PRN Reason: Pharmacy to dose Potassium Chloride (K-Dur) 20 meq PO ONCE ONE Stop: 05/18/18 13:03 Senna/Docusate Sodium (Hermila-Colace) 1 tab PO BID [facility] Last Admin: 05/18/18 09:15 Dose: Not Given Sennosides (Senokot) 17.2 mg PO Q12H PRN PRN Reason: Moderate Constipation Sodium Chloride (Ns Flush) 2 ml IV.FLUSH BID [facility] Last Admin: 05/18/18 09:27 Dose: 2 ml Sodium Chloride (Ns Flush) 2 ml IV.FLUSH PRN PRN PRN Reason: FLUSH AFTER USING IV ACCESS Zolpidem Tartrate (Ambien) 5 mg PO HS PRN PRN Reason: INSOMNIA Last Admin: 05/17/18 22:03 Dose: 5 mg Allergies Allergy/AdvReac Type Severity Reaction Status Date / Time No Known Allergies Allergy Verified 05/17/18 15:30 Home Medications Medication Instructions Recorded Confirmed Type dexamethasone 2 mg PO BID 05/17/18 05/17/18 History diltiazem HCl 240 mg PO DAILY 05/17/18 05/17/18 History folic acid 1 mg PO DAILY 05/17/18 05/17/18 History meloxicam 7.5 mg PO DAILY 05/17/18 05/17/18 History mirtazapine 15 mg PO DAILY 05/17/18 05/17/18 History omeprazole 20 mg PO BID 05/17/18 05/17/18 History ondansetron HCl [Zofran] 4 mg PO QID PRN 05/17/18 05/17/18 History oxycodone-acetaminophen 10 mg PO DIRECTED PRN 05/17/18 05/17/18 History prochlorperazine maleate 10 mg PO Q6-8H PRN 05/17/18 05/17/18 History Advance Directives Living Will: No Healthcare Surrogate: No Power of Supervising Broker: No Physical Exam Vital Signs: Vital Signs - 24 hr 05/17/18 15:30 05/17/18 15:57 05/17/18 16:05 Temperature 100.3 F H Pulse Rate 127 H 118 H Respiratory Rate 18 18 Blood Pressure 97/61 L 92/60 L Pulse Oximetry 92 L 95 05/17/18 17:08 05/17/18 18:33 05/17/18 19:22 Temperature 99.2 F 98.2 F 98.1 F Pulse Rate 101 H 81 76 Respiratory Rate 18 16 20 Blood Pressure 102/60 103/59 L 93/57 L Pulse Oximetry 97 96 05/17/18 20:00 05/17/18 20:50 05/17/18 21:00 Temperature 97.6 F Pulse Rate 74 72 Respiratory Rate 11 L 22 Blood Pressure 100/58 L 101/56 L Pulse Oximetry 100 94 L 98 05/17/18 22:00 05/17/18 23:00 05/18/18 00:00 Temperature 98.6 F Pulse Rate 89 79 86 Respiratory Rate 30 H 25 H 20 Blood Pressure 92/53 L 74/38 L 104/64 Pulse Oximetry 91 L 91 L 93 L 05/18/18 01:00 05/18/18 02:00 05/18/18 02:05 Temperature Pulse Rate 122 H 114 H 122 H Respiratory Rate 27 H 25 H Blood Pressure 140/67 102/55 L Pulse Oximetry 93 L 93 L 05/18/18 03:00 05/18/18 04:00 05/18/18 05:00 Temperature 105 F H 100.9 F H Pulse Rate 100 H 91 H Respiratory Rate 21 32 H 19 Blood Pressure 100/50 L 100/50 L 87/52 L Pulse Oximetry 93 L 96 05/18/18 05:39 05/18/18 07:00 05/18/18 08:00 Temperature 100.9 F H 98.1 F Pulse Rate 90 82 97 H Respiratory Rate 18 19 18 Blood Pressure 108/57 L 109/61 Pulse Oximetry 94 L 95 96 05/18/18 09:00 05/18/18 10:00 05/18/18 11:00 Temperature Pulse Rate 94 H 84 78 Respiratory Rate 28 H 18 15 Blood Pressure 103/62 96/60 L Pulse Oximetry 95 93 L 93 L 05/18/18 11:29 05/18/18 12:00 Temperature Pulse Rate 72 Respiratory Rate 15 Blood Pressure 105/62 Pulse Oximetry 98 96 I&O: Intake & Output 05/16/18 05/17/18 05/18/18 05/19/18 06:59 06:59 06:59 06:59 Intake Total 5751.5 / 5751.5 100 / 100 Output Total 700 / 700 Balance 5051.5 / 5051.5 100 / 100 Weight 206 lb 12.697 oz Physical Exam: CONSTITUTIONAL/GENERAL: This is a pale, adequately nourished patient, dozing, in no apparent distress. TUBES/LINES/DRAINS: Left AC PIV, right wrist PIV SKIN: No jaundice, rashes, or lesions. Ecchymoses on upper extremities. No wounds seen anteriorly. Skin temperature appropriate. Not diaphoretic. HEAD: Atraumatic. Normocephalic. EYES: Pupils equal and round and reactive. Extraocular motions intact. No scleral icterus. No injection or drainage. Fundi not examined. ENT: Hearing grossly normal. Nose without bleeding or purulent drainage. Throat without visible erythema, exudates, masses, or lesions. NECK: Trachea midline. Supple, nontender. No palpable thyroid enlargement or nodularity. CARDIOVASCULAR: Regular rate and rhythm without murmurs, gallops, or rubs. No JVD. Peripheral pulses symmetric. RESPIRATORY/CHEST: Symmetric, unlabored respirations. Clear to auscultation. Breath sounds equal bilaterally. No wheezes, rales, or rhonchi. GASTROINTESTINAL: Abdomen soft, non-tender, nondistended. No hepato-splenomegaly , or palpable masses. No guarding. Bowel sounds present. GENITOURINARY: Without palpable bladder distension. MUSCULOSKELETAL: Extremities without clubbing, cyanosis, or edema. No joint tenderness or effusion noted. No calf tenderness. No mottling or clubbing. LYMPHATICS: No palpable cervical or supraclavicular adenopathy. NEUROLOGICAL: Dozing off and on. Oriented and pleasant when aroused but falls back to sleep easily, globally weak, moves all extremities. PSYCHIATRIC: No obvious anxiety/depression. no apparent hallucinations or other psychotic thought process. . Diagnostic Tests Laboratory: Laboratory Results - last 72 hr 05/17/18 05/17/18 05/17/18 16:20 16:42 16:42 CBC w Diff Slide review pending WBC 1.4 L RBC 2.75 L Hgb 8.3 L Hct 25.2 L MCV 91.7 MCH 30.1 MCHC 32.8 RDW 20.3 H Plt Count 80 L MPV 6.8 L Neut % (Auto) 69.9 Lymph % (Auto) 14.5 Pine % (Auto) 14.4 H Eos % (Auto) 0.9 Baso % (Auto) 0.3 Neut # (Auto) 1.0 L Lymph # (Auto) 0.2 L Pine # (Auto) 0.2 Eos # (Auto) 0.0 Baso # (Auto) 0.0 WBC Differential Manual diff final Seg Neuts % (Manual) 65 Band Neuts % (Manual) 9 H Lymphocytes % (Manual) 19 Monocytes % (Manual) 5 Basophils % (Manual) 1 Metamyelocytes % (Man) 1 Abs Neuts (Manual) 1.1 L Nucleated RBCs/100 WBC Differential Comment . Platelet Estimate Low L Platelet Morphology Normal RBC Morphology Normal Dimorphic RBCs Ovalocytes Sodium 131 L Potassium 3.6 Chloride 97 L Carbon Dioxide 21.2 Anion Gap 13 BUN 16 Creatinine 1.10 Estimated GFR 66 L POC Glucose 161 H Random Glucose 156 H Lactic Acid Calcium 6.8 L* Prot Corrected Calcium 7.2 L* Total Bilirubin 0.7 AST 19 ALT 30 Alkaline Phosphatase 101 Total Creatine Kinase 30 L Troponin I Less than 0.02 L Total Protein 6.4 Albumin 2.2 L Urine Color Urine Clarity Urine pH Ur Specific [place] Urine Protein Urine Glucose (UA) Urine Ketones Urine Occult Blood Urine Nitrate Urine Bilirubin Urine Urobilinogen Ur Leukocyte Esterase Urine RBC Urine WBC Urine WBC Clumps Ur Squamous Epith Cells Urine Bacteria Micro UA Comment Ur Microscopic Review Urine Culture Comments [facility] Gel Crossmatch 05/17/18 05/17/18 05/17/18 16:42 19:00 23:00 CBC w Diff WBC RBC Hgb Hct MCV MCH MCHC RDW Plt Count MPV Neut % (Auto) Lymph % (Auto) Pine % (Auto) Eos % (Auto) Baso % (Auto) Neut # (Auto) Lymph # (Auto) Pine # (Auto) Eos # (Auto) Baso # (Auto) WBC Differential Seg Neuts % (Manual) Band Neuts % (Manual) Lymphocytes % (Manual) Monocytes % (Manual) Basophils % (Manual) Metamyelocytes % (Man) Abs Neuts (Manual) Nucleated RBCs/100 WBC Differential Comment Platelet Estimate Platelet Morphology RBC Morphology Dimorphic RBCs Ovalocytes Sodium Potassium Chloride Carbon Dioxide Anion Gap BUN Creatinine Estimated GFR POC Glucose Random Glucose Lactic Acid 3.1 H 1.1 1.4 Calcium Prot Corrected Calcium Total Bilirubin AST ALT Alkaline Phosphatase Total Creatine Kinase Troponin I Total Protein Albumin Urine Color Urine Clarity Urine pH Ur Specific [place] Urine Protein Urine Glucose (UA) Urine Ketones Urine Occult Blood Urine Nitrate Urine Bilirubin Urine Urobilinogen Ur Leukocyte Esterase Urine RBC Urine WBC Urine WBC Clumps Ur Squamous Epith Cells Urine Bacteria Micro UA Comment Ur Microscopic Review Urine Culture Comments [facility] Gel Crossmatch 05/18/18 05/18/18 05/18/18 00:52 04:48 04:48 CBC w Diff Slide review pending WBC 1.1 L RBC 2.21 L Hgb 7.0 L Hct 20.0 L* MCV 90.6 MCH 31.7 MCHC 35.0 RDW 20.0 H Plt Count 53 L D MPV 7.5 Neut % (Auto) Lymph % (Auto) Pine % (Auto) Eos % (Auto) Baso % (Auto) Neut # (Auto) Lymph # (Auto) Pine # (Auto) Eos # (Auto) Baso # (Auto) WBC Differential Manual diff final Seg Neuts % (Manual) 53 Band Neuts % (Manual) 12 H Lymphocytes % (Manual) 21 Monocytes % (Manual) 13 H Basophils % (Manual) Metamyelocytes % (Man) 1 Abs Neuts (Manual) 0.7 L Nucleated RBCs/100 WBC 1 H Differential Comment . Platelet Estimate Low L Platelet Morphology Normal RBC Morphology Dimorphic RBCs Present H Ovalocytes 1+ H Sodium 137 Potassium 3.4 L Chloride 106 D Carbon Dioxide 20.8 L Anion Gap 10 BUN 16 Creatinine 0.81 Estimated GFR Greater than 89 POC Glucose Random Glucose 102 Lactic Acid Calcium 6.7 L* Prot Corrected Calcium 7.5 L Total Bilirubin 0.7 AST 17 ALT 23 Alkaline Phosphatase 89 Total Creatine Kinase Troponin I Total Protein 5.5 L D Albumin 1.8 L Urine Color Yellow Urine Clarity Clear Urine pH 6.0 Ur Specific [place] 1.015 Urine Protein 30 H Urine Glucose (UA) Negative Urine Ketones Negative Urine Occult Blood Small H Urine Nitrate Negative Urine Bilirubin Negative Urine Urobilinogen 0.2 Ur Leukocyte Esterase Small H Urine RBC 0-3 Urine WBC 21-50 H Urine WBC Clumps Few H Ur Squamous Epith Cells 0-5 Urine Bacteria Moderate H Micro UA Comment Culture indicated Ur Microscopic Review Microscopic reviewed Urine Culture Comments Culture indicated [facility]TS Gel Crossmatch 05/18/18 05/18/18 05/18/18 11:15 11:15 12:00 CBC w Diff WBC 1.6 L RBC 2.48 L Hgb 7.5 L Hct 22.8 L MCV 91.8 MCH 30.4 MCHC 33.1 RDW 19.9 H Plt Count 62 L MPV 7.3 Neut % (Auto) Lymph % (Auto) Pine % (Auto) Eos % (Auto) Baso % (Auto) Neut # (Auto) Lymph # (Auto) Pine # (Auto) Eos # (Auto) Baso # (Auto) WBC Differential Seg Neuts % (Manual) Band Neuts % (Manual) Lymphocytes % (Manual) Monocytes % (Manual) Basophils % (Manual) Metamyelocytes % (Man) Abs Neuts (Manual) Nucleated RBCs/100 WBC Differential Comment Platelet Estimate Platelet Morphology RBC Morphology Dimorphic RBCs Ovalocytes Sodium Potassium Chloride Carbon Dioxide Anion Gap BUN Creatinine Estimated GFR POC Glucose Random Glucose Lactic Acid 0.9 Calcium Prot Corrected Calcium Total Bilirubin AST ALT Alkaline Phosphatase Total Creatine Kinase Troponin I Total Protein Albumin Urine Color Urine Clarity Urine pH Ur Specific [place] Urine Protein Urine Glucose (UA) Urine Ketones Urine Occult Blood Urine Nitrate Urine Bilirubin Urine Urobilinogen Ur Leukocyte Esterase Urine RBC Urine WBC Urine WBC Clumps Ur Squamous Epith Cells Urine Bacteria Micro UA Comment Ur Microscopic Review Urine Culture Comments [facility] Gel Crossmatch See Detail Result Diagrams: 05/18/18 11:15 05/18/18 04:48 Microbiology: Microbiology 05/17/18 16:05 Aerobic Blood Culture - Preliminary Blood - Peripheral No growth in 1 day Anaerobic Blood Culture - Preliminary Escherichia coli 05/17/18 16:05 Aerobic Blood Culture - Preliminary Blood - Peripheral No growth in 1 day Anaerobic Blood Culture - Preliminary No growth in 1 day 05/17/18 16:20 Influenza Types A,B Antigen - Final Nasal Wash Negative for FLU A and B antigen Infection due to influenza A or B cannot be ruled out since the antigen present in the sample may be below the detection limit of the test. Imaging: Chest X-Ray 05/17/18 16:02 CONCLUSION: 1. There appear to be some nodular densities projecting over the right hemithorax, one in the superior perihilar distribution and an additional lesion medially in the right apex. I would recommend a contrasted CT scan of the chest for further evaluation. 2. Chronic interstitial changes with probable fibrosis in the left lung base. 3. Rounded 2 cm calcification in the left upper abdominal quadrant may be related to the spleen. This area can probably be evaluated on CT of the chest as well. Patient/Family Conference Present at Family Conference: Spoke with at bedside. Patient is dozing off and on and participates minimally in the conversation. His provides most of the history. She states that they do have a living will and a healthcare surrogate at home but need to have it witnessed. I have requested that she bring it to the hospital where witnessing can be completed and it can be entered into the system. She states that she is the healthcare surrogate which would be consistent with [place] statutes which would make her the proxy decision-maker. She has 2 sons , Ayo and Marvin who live locally, who would be the alternate proxy decision makers if the were unavailable or unwilling to serve. She states that it was his plan to continue chemotherapy if possible, as he tolerates it well. CODE STATUS was discussed and at this time, she wishes for him to remain a FULL CODE. Goals remain aggressive at this time. . Family Conference Location: Bedside Issues Discussed: * Palliative care role, purpose, approach * Additional medical, psychosocial, and spiritual history * Patients general health, functional status, and cognitive changes in the months leading up to the current hospitalization * Patient/family understanding of the current medical problems * Patient/family understanding of prognosis * Patients goals of care as best understood from advance directives and/or conversations and/or values * Current medical treatment options and benefits/burdens of those options * Likely scenarios comparing ongoing aggressive care with a transition to comfort measures only * Questions answered to the best of my ability * Palliative care contact information provided Assessment and Plan Pertinent Non-Medical Issues: Psychosocial: He was born in [place], [place] and has been to his for 50 years. 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 He has 2 sons who live locally. Spiritual: Finish Carpenter available. Legal: No advance directives available. Ethical issues impacting care: None noted. Important Contacts: : Sybil villar Son: Ayo Garza . Prognosis: His prognosis is guarded. He has a history of polyploid adenocarcinomas requiring frequent colonoscopies. He now has been diagnosed with lung cancer in December 2016 with metastasis to bone, brain and adrenals. [facility] and presents with profound weakness, sepsis, UTI. He was treated with Xeloda for 10 months but developed brain metastasis and was placed back on chemotherapy. He is experiencing recurrent urinary tract infections and is pancytopenic, now on neutropenic precautions for a white blood cell count of 1.6, absolute neutrophils 0.7. He is at significant risk for continued complications, decline and rehospitalizations. . Code Status: Full Code Plan: PLAN: Legal decision maker: While patient appears capacitated for decision-making, he is extremely weak and exhausted. He would benefit from shared decision making with his who states she is his healthcare surrogate. Lacking that paperwork, per [place] statutes, she would be the designated healthcare decision maker by proxy. Goals: Aggressive. CODE STATUS: FULL CODE SYMPTOMS: * Weakness: He is globally weak, generally fatigued. This is likely multifactorial to include debility, anemia, poor performance status secondary to stage IV cancer. Physical therapy was ordered however he was awaiting blood transfusion and so therapy was held. He would benefit from physical therapy and possibly a nutritional consultation, as he is total protein is 5.5 and albumin 1.8. * Anorexia: Multifactorial to include overall weakness, chemotherapy and the metastatic process. Nutritional consultation may be of assistance. * Dyspnea: Currently on room air and eupneic. His presenting dyspnea was likely exacerbated by sepsis, hypotension. Currently stable. * Abdominal pain: Likely related to the UTI, currently resolved. As UTIs have been recurrent and the patient has BPH, on Flomax, would recommend a post void bladder scan to evaluate possible urinary retention as a risk factor for recurrent UTIs. SUMMARY This is a 68-year-old male with a history of polypoid adenocarcinoma, now diagnosed with lung cancer with metastasis to brain, bone and adrenals. He is followed by the [facility] and is receiving palliative chemotherapy. Per my discussion with his , it is the patient's intention to continue chemotherapy at this time. Given his terminal, metastatic process, he is at elevated risk for continued complications, decline and readmissions. He would be hospice appropriate if goals were consistent. Palliative care will continue to follow the patient during hospital course as condition evolves, to assist patient/decision-maker with understanding of their medical conditions, weighing benefits/burdens of treatment options, for clarification of goals of treatment. Additionally will assist with any symptoms of palliative concern. . Appreciation Thank you for the opportunity to participate in the care of Perry Garza. Attestation Attestation: To help prompt me to consider important information that might be impacting today's encounter and assessment, information from prior notes written by myself or my colleagues may have been "brought forward" into today's note. My signature on this note, however, is an attestation that I personally performed the exam, history, and/or decision-making noted today, and, unless otherwise indicated, the interactions with patient, family, and staff as well as the review of records all occurred today. I also attest that the listed assessment and stated plan reflect my best clinical judgment today based on the combination of historical information, prior notes, and today's exam/ interactions. When time spent is documented, it refers only to time spent today by the signer, or if indicated, combined time spent today by collaborating physician/nurse practitioner. .
[2018-05-18] MEDS ORDERED: Calcium Gluconate Inj 1 GM in Sodium Chlor 0.9% Inj 100 ML IV.SIG ONE (14:00)
[2018-05-18] MEDS: Vancomycin Inj 1,700 MG in Sodium Chlor 0.9% Inj 500 ML IV.SIG SCH (14:39)
[2018-05-18] MEDS ORDERED: Sod Chloride 0.9% Inj 1,000 ML IV.CONT SCH (18:45)
--- NOTE | 2018-05-18 19:47 | MB ---
cc: Nate Cates MD DATE: 05/18/2018 REQUESTING PHYSICIAN: Dr. Tai. REASON: Sepsis and pancytopenia. HISTORY OF PRESENT ILLNESS: This is a 68-year-old white male with metastatic lung cancer. The patient has been receiving chemotherapy. He received chemotherapy last week. The patient presented to the emergency department with profound weakness. His chemotherapy was completed 5 days ago. His states that he was doing well up until 2 days ago, when he stopped eating, said that he was not feeling well, and was markedly weak. He was evaluated at the [facility], and they did lab work, and sent him to the emergency department because of neutropenia, and also urinalysis indicated UTI. The patient was noted to have a temperature of 100.3. His white blood cell count was low at 1.4. His platelet count was also low at 80, and has now decreased to 62. He is awake and alert. He tells me that he really has no pain or other major symptoms, and that he feels better than he did yesterday. His notes that he has had decreased urine. Blood culture from 05/17/2018 has E coli in 1 of 4 bottles. Urine culture is pending. Chest x-ray was performed, and it showed a rounded calcification at the left upper abdominal quadrant, which may be related to the spleen. The patient has no cough or shortness of breath. PAST MEDICAL HISTORY: 1. 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 History of chemotherapy and radiation therapy. 2. COPD. 3. Gastroesophageal reflux disease. 4. History of esophageal stricture. 5. Hypertension. 6. Osteoarthritis. 7. Pulmonary fibrosis. 8. History of malignant neoplasm of the rectum, anus, and anal canal. 9. Left total knee replacement. ALLERGIES: NO KNOWN DRUG ALLERGIES. MEDICATIONS: Aztreonam, cefepime, Decadron, folic acid, Remeron, Protonix, vancomycin, Ambien. SOCIAL HISTORY: The patient is . HABITS: The patient has a history of smoking in the past. Occasional alcohol use. No illicit drugs. FAMILY HISTORY: Noncontributory. REVIEW OF SYSTEMS: All systems have been reviewed and are negative, except for features as mentioned in history of present illness. PHYSICAL EXAMINATION: GENERAL: This is a well-developed male who is in no acute distress. He is awake, alert, and oriented. VITAL SIGNS: Temperature 98.1, BP 96/56, respirations 14, heart rate 72. HEENT: The head is atraumatic. Extraocular movements are grossly intact. Pupils reactive to light. No icterus. Oropharynx: Moist mucosa. No visible lesions. NECK: Supple without adenopathy. LUNGS: Coarse bilateral rhonchi. HEART: Regular S1 and S2 without murmurs, rubs or gallops. ABDOMEN: Bowel sounds present. Soft. No tenderness appreciated. RECTAL: Not performed. EXTREMITIES: No clubbing, cyanosis or edema. SKIN: No rash. NEUROLOGIC: No gross focal finding. The patient is alert and oriented x3. PSYCHIATRIC: The patient is calm and cooperative. LABORATORY DATA: WBC 1.6, platelets 62, hemoglobin 7.5. Creatinine 0.81, BUN 16, sodium 137. Liver function test normal. IMPRESSION: 1. Gram-negative sepsis due to Escherichia coli arising from urinary tract infection. 2. Urinary tract infection. 3. Fever and neutropenia. 4. Metastatic lung cancer. The patient is status post chemotherapy 5 days ago. RECOMMENDATIONS: 1. Continue aztreonam. 2. Continue cefepime. 3. Monitor the sensitivity of the bacteria in the blood. 4. Continue vancomycin in light of neutropenia. 5. Monitor temperature. 6. Monitor clinical response. Thank you for this consultation. The patient's progress will be followed, and further recommendations will be given upon followup, if necessary. MD RODDY Ames/rh , 03:59 PM , 04:12 PM
--- NOTE | 2018-05-18 21:09 | MB ---
cc: eNlly Pineda MD DATE: 05/18/2018 CHIEF COMPLAINT: 1. Metastatic lung cancer. 2. Urinary tract infection. 3. Sepsis. 4. Pancytopenia, due to chemotherapy. HISTORY OF PRESENT ILLNESS: The patient is a 68-year-old gentleman with a history of COPD, acid reflux, hypertension, osteoarthritis, metastatic lung cancer, who presented to the hospital with weakness. Laboratory work indicated that he was neutropenic and he was also febrile. He was found to be pancytopenic. Laboratory studies with white blood cell count 1.6, hemoglobin 7.5, and platelet count is 62,000. ANC is 700. Chemistry studies with a creatinine of 0.81, normal liver function tests. Blood cultures from 05/17/2018 with 1 out of 4 bottles positive for Escherichia coli. He is negative for flu. Urine culture is pending. Chest x-ray with nodular densities over the right hemithorax, chronic interstitial changes with fibrosis in the left lung base. PAST MEDICAL HISTORY: 1. Lung cancer. 2. Chronic obstructive pulmonary disease. 3. Acid reflux. 4. Hypertension. ALLERGIES: NO KNOWN DRUG ALLERGIES. HOSPITAL MEDICATIONS: Include: 1. Aztreonam. 2. Cefepime. 3. Dexamethasone. 4. Folic acid. 5. Remeron. 6. Zofran. 7. Protonix. 8. Senna. 9. Docusate. 10. Ambien. SOCIAL HISTORY: The patient lives here in the [facility]. He is and he has a good support system with his family. SOCIAL HISTORY: He is a former smoker. He denies any current tobacco, alcohol or illegal drug use. FAMILY HISTORY: No known family history of malignancy. REVIEW OF SYSTEMS: As above in the HPI. All others negative. PHYSICAL EXAMINATION: GENERAL: Well-developed, well-nourished man in no distress, resting comfortably in bed. HEENT: Normocephalic, atraumatic. Alopecia. Eyes with no scleral icterus. NECK: Supple. LUNGS: Clear. HEART: Regular rate and rhythm. ABDOMEN: Soft, nontender, nondistended. Bowel sounds present. EXTREMITIES: No edema. NEUROLOGIC: Grossly nonfocal. PSYCHIATRIC: Appropriate mood and affect. ASSESSMENT AND PLAN: 1. Metastatic lung cancer, status post multiple cycles of chemotherapy. The patient is uncertain of the type of lung cancer that he has. He reports that he received his last dose of chemotherapy approximately 1 week ago. His oncologist is Dr. Nini Amador at the [facility]. 2. Pancytopenia secondary to chemotherapy. He is status post transfusion of blood with appropriate response. He is neutropenic with ANC of 700. As he is neutropenic and infected, we will start him on filgrastim. 3. Infectious disease, sepsis secondary to urinary source. Currently on broad-spectrum antibiotics. ID team is following. We will follow up cultures. MD MARILYN West/sv , 08:23 PM , 08:30 PM MTDSri
[2018-05-18] MEDS: Mirtazapine 15 MG Tablet PO SCH (22:14)
[2018-05-19] MEDS: Vancomycin Inj 1,700 MG in Sodium Chlor 0.9% Inj 500 ML IV.SIG SCH ×2 (01:27→13:34)
[2018-05-19] MEDS: Aztreonam Inj 2 GM in Sodium Chloride 0.9% Inj 100 ML IV.SIG SCH ×3 (03:55→18:31)
[2018-05-19 06:15] LABS: Baso % (Auto) 1.7 % (0.0-2.0); Eos % (Auto) 0.4 % (0.0-4.0); Hematocrit 27.1 % (39.0-51.0); Hemoglobin 9.4 gm/dL (13.0-17.0); Lymph # (Auto) 0.2 th/mm3 (1.0-4.8); Lymph % (Auto) 12.5 % (9.0-44.0); Mean Corpuscular HGB Conc 34.6 % (32.0-36.0); Mean Corpuscular Hemoglobin 30.5 pg (27.0-34.0); Mean Corpuscular Volume 88.3 fL (80.0-100.0); Mono # (Auto) 0.2 th/mm3 (0.0-0.9); Mono % (Auto) 12.1 % (0.0-8.0); Neut # (Auto) 1.5 th/mm3 (1.8-7.7); Neut % (Auto) 73.3 % (16.0-70.0); Platelet Count 76 th/mm3 (150-450); Red Blood Count 3.07 mil/mm3 (4.50-5.90); Red Cell Distribution Width 19.7 % (11.6-17.2); White Blood Count 1.9 th/mm3 (4.0-11.0)
[2018-05-19 06:22] LABS: Chloride 109 meq/L (98-107); Potassium 4.1 meq/L (3.5-5.1); Sodium 139 meq/L (136-145)
[2018-05-19 06:46] LABS: Alanine Aminotransferase 25 U/L (12-78); Albumin 1.9 g/dL (3.4-5.0); Alkaline Phosphatase 94 U/L (45-117); Anion Gap 8 meq/L (5-15); Aspartate Aminotransferase 17 U/L (15-37); Blood Urea Nitrogen 14 mg/dL (7-18); Calcium 7.4 mg/dL (8.5-10.1); Glomerular Filtration Rate Greater Than 89 mL/min (>89); Glucose,Random 138 mg/dL (74-106); Total Protein 6.5 g/dL (6.4-8.2)
--- NOTE | 2018-05-19 06:53 | P.PN ---
Subjective Interval history: Blood pressure and lab values improving. Strength improving. Did not sleep well but overall feeling better. Physical Exam Vital signs: Vital Signs 05/18/18 07:00 05/18/18 08:00 05/18/18 09:00 Temperature 98.1 F Pulse Rate 82 97 H 94 H Respiratory Rate 19 18 28 H Blood Pressure 108/57 L 109/61 103/62 Pulse Oximetry 95 96 95 05/18/18 10:00 05/18/18 11:00 05/18/18 11:29 Temperature Pulse Rate 84 78 Respiratory Rate 18 15 Blood Pressure 96/60 L Pulse Oximetry 93 L 93 L 98 05/18/18 12:00 05/18/18 13:00 05/18/18 14:00 Temperature Pulse Rate 72 80 76 Respiratory Rate 15 22 16 Blood Pressure 105/62 110/61 75/42 L Pulse Oximetry 96 97 96 05/18/18 14:04 05/18/18 15:00 05/18/18 16:00 Temperature 97.7 F Pulse Rate 76 72 66 Respiratory Rate 16 13 13 Blood Pressure 96/55 L 96/56 L 103/58 L Pulse Oximetry 95 93 L 97 05/18/18 17:00 05/18/18 18:00 05/18/18 18:08 Temperature Pulse Rate 64 78 78 Respiratory Rate 14 15 19 Blood Pressure 110/62 96/52 L 99/56 L Pulse Oximetry 97 96 98 05/18/18 19:00 05/18/18 19:27 05/18/18 19:44 Temperature 98.3 F 98.6 F Pulse Rate 78 77 72 Respiratory Rate 20 19 22 Blood Pressure 95/58 L 96/56 L Pulse Oximetry 97 95 05/18/18 20:00 05/18/18 20:15 05/18/18 21:00 Temperature 98.6 F Pulse Rate 100 H 72 Respiratory Rate 18 17 Blood Pressure 97/57 L 123/70 Pulse Oximetry 97 98 96 05/18/18 22:00 05/18/18 22:04 05/18/18 22:32 Temperature 97.3 F L 98.7 F Pulse Rate 72 78 80 Respiratory Rate 26 H 22 16 Blood Pressure 97/53 L 97/63 L Pulse Oximetry 97 94 L 05/18/18 23:23 05/19/18 00:00 05/19/18 01:00 Temperature 98.9 F 98.7 F Pulse Rate 72 68 66 Respiratory Rate 14 14 16 Blood Pressure 94/57 L 103/51 L 108/60 Pulse Oximetry 94 L 95 94 L 05/19/18 01:25 05/19/18 02:00 05/19/18 03:00 Temperature 98.7 F Pulse Rate 66 66 64 Respiratory Rate 18 19 13 Blood Pressure 108/60 137/77 145/77 H Pulse Oximetry 94 L 94 L 94 L 05/19/18 04:00 05/19/18 05:00 05/19/18 06:00 Temperature 98.9 F Pulse Rate 64 68 68 Respiratory Rate 15 17 15 Blood Pressure 142/80 H 132/66 150/78 H Pulse Oximetry 92 L 90 L 93 L Intake & Output 05/18/18 05/18/18 05/19/18 06:59 18:59 06:59 Intake Total 4651.5 / 4651.5 1547 / 1547 2717 / 2717 Output Total 700 / 700 1950 / 1950 1100 / 1100 Balance 3951.5 / 3951.5 -403 / -403 1617 / 1617 Weight 93.8 kg 98.8 kg Intake: IV 4411.5 / 4411.5 827 / 827 1917 / 1917 NS Inj 1,000 ML @ 100 mls/hr IV 1999 1000 / 1000 .CONT .Q10H MONIK Rx#:[id number] Azactam Inj 2 GM In NS Inj 100 100 / 100 100 / 100 200 / 200 ML @ 200 mls/hr IV.SIG Q8H MONIK Rx#:[id number] Calcium Gluconate Inj 1 GM In 110 / 110 NS Inj 100 ML @ 110 mls/hr IV. SIG ONCE ONE Rx#:[id number] Maxipime Inj 2,000 MG In NS Inj 200 / 200 100 / 100 200 / 200 100 ML @ 200 mls/hr IV.SIG Q8H MONIK Rx#:[id number] Gentamicin Inj 460 MG In NS Inj 111.5 / 111.5 100 ML @ 100 mls/hr IV.SIG ONCE ONE Rx#:[id number] NS Inj 1,000 ML @ As Directed 1999 IV.SIG .Q0M ONE Rx#:[id number] Vancomycin Inj 1,700 MG In NS 517 / 517 517 / 517 Inj 500 ML @ 250 mls/hr IV.SIG Q12H MONIK Rx#:[id number] Oral 240 / 240 720 / 720 Intake (Blood Product) Amt 800 / 800 Rbc As-3 Leukoreduced Unit 400 / 400 [id number] Rbc As-3 Leukoreduced Unit 400 / 400 [id number] Output: Urine 700 / 700 1950 / 1950 1100 / 1100 Other: # Incontinent Voids 1 # Urine Diapers 1 Date of Last Bowel Movement 05/17/18 05/17/18 # Bowel Movements 1 Weight On Admission 93.8 kg Narrative: GENERAL: Sleeping, arouses to voice, no acute distress. SKIN: Warm and dry. HEAD: Atraumatic. Normocephalic. EYES: Pupils equal and round. No scleral icterus. No injection or drainage. ENT: No nasal bleeding or discharge. Mucous membranes pink and moist. NECK: Trachea midline. No JVD. CARDIOVASCULAR: Regular rate and rhythm. RESPIRATORY: No accessory muscle use. Coarse breath sounds throughout but good air movement. Few fine crackles at the bases. No wheeze. GASTROINTESTINAL: Abdomen soft, non-tender, nondistended. Hepatic and splenic margins not palpable. MUSCULOSKELETAL: Extremities without clubbing, cyanosis, or edema. No obvious deformities. SCDs in place. NEUROLOGICAL: Awake and alert. No obvious cranial nerve deficits. Motor grossly within normal limits. Five out of 5 muscle strength in the arms and legs. Normal speech. PSYCHIATRIC: Appropriate mood and affect; insight and judgment normal. Results - Labs CBC & Chem 7: 05/19/18 06:00 05/19/18 06:00 Laboratory Results - last 24 hr 05/17/18 05/18/18 05/18/18 23:00 11:15 11:15 CBC w Diff WBC 1.6 L RBC 2.48 L Hgb 7.5 L Hct 22.8 L MCV 91.8 MCH 30.4 MCHC 33.1 RDW 19.9 H Plt Count 62 L MPV 7.3 Neut % (Auto) Lymph % (Auto) [place] % (Auto) Eos % (Auto) Baso % (Auto) Neut # (Auto) Lymph # (Auto) [place] # (Auto) Eos # (Auto) Baso # (Auto) Differential Comment Sodium Potassium Chloride Lactic Acid 0.9 Nasal Screen MRSA (PCR) Not detected Blood Type Antibody Screen MTS Gel Crossmatch 05/18/18 05/19/18 05/19/18 12:00 06:00 06:00 CBC w Diff Slide review pending WBC 1.9 L RBC 3.07 L Hgb 9.4 L Hct 27.1 L MCV 88.3 D MCH 30.5 MCHC 34.6 RDW 19.7 H Plt Count 76 L MPV 8.0 Neut % (Auto) 73.3 H Lymph % (Auto) 12.5 [place] % (Auto) 12.1 H Eos % (Auto) 0.4 Baso % (Auto) 1.7 Neut # (Auto) 1.5 L Lymph # (Auto) 0.2 L [place] # (Auto) 0.2 Eos # (Auto) 0.0 Baso # (Auto) 0.0 Differential Comment . Sodium 139 Potassium 4.1 Chloride 109 H Lactic Acid Nasal Screen MRSA (PCR) Blood Type A Positive Antibody Screen Negative MTS Gel Crossmatch See Detail Microbiology 05/17/18 16:05 Blood - Peripheral Aerobic Blood Culture - Preliminary No growth in 1 day 05/17/18 16:05 Blood - Peripheral Anaerobic Blood Culture - Preliminary Escherichia coli 05/17/18 16:05 Blood - Peripheral Aerobic Blood Culture - Preliminary No growth in 1 day 05/17/18 16:05 Blood - Peripheral Anaerobic Blood Culture - Preliminary No growth in 1 day Assessment and Plan - Assessment (1) Sepsis Code(s): A41.9 - Sepsis, unspecified organism Status: Acute Plan: Clinically improved. Continue IV antibiotics. Will Hep-Lock IV fluid as blood pressures have normalized. Source likely urine. E. coli noted on one blood culture. (2) UTI (urinary tract infection) Code(s): N39.0 - Urinary tract infection, site not specified Status: Acute Plan: As above. Continue medication (3) Pancytopenia due to chemotherapy Code(s): D61.810 - Antineoplastic chemotherapy induced pancytopenia Status: Acute Plan: Improving. Appreciate hematology consult. Status post 2 units packed red cells. Neupogen planned. (4) Hypocalcemia Code(s): E83.51 - Hypocalcemia Status: Acute Plan: Likely associated with low albumin. Will correct orally and hopefully increase food intake will help. (5) Hypertension Code(s): I10 - Essential (primary) hypertension Status: Acute Plan: Blood pressure a bit elevated currently however BPs were quite low initially. Will follow and provide medication as needed. (6) COPD (chronic obstructive pulmonary disease) Code(s): J44.9 - Chronic obstructive pulmonary disease, unspecified Status: Acute Plan: Continue duo nebs. Likely has some underlying pulmonary fibrosis as well. - Plan Code Status: full (1) Sepsis Qualifiers: Sepsis type: sepsis due to unspecified organism Qualified Code(s): A41.9 - Sepsis, unspecified organism
[2018-05-19 07:36] LABS: Eosinophils 1 % (0-4); Lymphocytes 14 % (9-44); Metamyelocytes 1 % (0-1); Monocytes 8 % (0-8); Myelocytes 1 % (0-0); Platelet Morphology Normal (Normal); RBC Morphology Normal (Normal)
[2018-05-19] MEDS: Pantoprazole Sodium 20 MG DR Tablet PO SCH ×2 (08:57→21:39)
[2018-05-19] MEDS: Sodium Chloride 0.9% 2 ML Flush BID IV.FLUSH SCH ×2 (08:57→21:39)
[2018-05-19] MEDS: Senna/Docusate Sodium 8.6/50 MG Tablet PO SCH ×2 (08:57→21:39)
[2018-05-19] MEDS: Folic Acid 1 MG Tablet PO SCH (08:58)
--- NOTE | 2018-05-19 19:45 | P.PNID ---
Subjective Remarks: Patient says he feels well. He denies chills. He denies shortness of breath. No complaints. Blood culture has E. coli in 1 bottle. Urine culture has no growth. White blood cell count is improving. This is a 68-year-old white male with metastatic lung cancer. The patient has been receiving chemotherapy. He received chemotherapy last week. The patient presented to the emergency department with profound weakness. His chemotherapy was completed 5 days ago. His states that he was doing well up until 2 days ago, when he stopped eating, said that he was not feeling well, and was markedly weak. He was evaluated at the [facility], and they did lab work, and sent him to the emergency department because of neutropenia, and also urinalysis indicated UTI. The patient was noted to have a temperature of 100.3. His white blood cell count was low at 1.4. His platelet count was also low at 80, and has now decreased to 62. Past Medical History: PAST MEDICAL HISTORY: 1. 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 History of chemotherapy and radiation therapy. 2. COPD. 3. Gastroesophageal reflux disease. 4. History of esophageal stricture. 5. Hypertension. 6. Osteoarthritis. 7. Pulmonary fibrosis. 8. History of malignant neoplasm of the rectum, anus, and anal canal. 9. Left total knee replacement. Allergies/Adverse Reactions: Allergies No Known Allergies Allergy (Verified 05/17/18 15:30) Objective Vital Signs 05/18/18 19:44 05/18/18 20:00 05/18/18 20:15 Temperature 98.6 F 98.6 F Pulse Rate 72 100 H Respiratory Rate 22 18 Blood Pressure 97/57 L Pulse Oximetry 97 98 05/18/18 21:00 05/18/18 22:00 05/18/18 22:04 Temperature 97.3 F L Pulse Rate 72 72 78 Respiratory Rate 17 26 H 22 Blood Pressure 123/70 97/53 L 97/63 L Pulse Oximetry 96 97 05/18/18 22:32 05/18/18 23:23 05/19/18 00:00 Temperature 98.7 F 98.9 F Pulse Rate 80 72 68 Respiratory Rate 16 14 14 Blood Pressure 94/57 L 103/51 L Pulse Oximetry 94 L 94 L 95 05/19/18 01:00 05/19/18 01:25 05/19/18 02:00 Temperature 98.7 F 98.7 F Pulse Rate 66 66 66 Respiratory Rate 16 18 19 Blood Pressure 108/60 108/60 137/77 Pulse Oximetry 94 L 94 L 94 L 05/19/18 03:00 05/19/18 04:00 05/19/18 05:00 Temperature 98.9 F Pulse Rate 64 64 68 Respiratory Rate 13 15 17 Blood Pressure 145/77 H 142/80 H 132/66 Pulse Oximetry 94 L 92 L 90 L 05/19/18 06:00 05/19/18 06:11 05/19/18 07:00 Temperature Pulse Rate 68 68 64 Respiratory Rate 15 17 16 Blood Pressure 150/78 H 150/78 H 160/79 H Pulse Oximetry 93 L 95 98 05/19/18 08:00 05/19/18 09:00 05/19/18 10:00 Temperature 97.7 F Pulse Rate 64 72 70 Respiratory Rate 19 25 H 24 Blood Pressure 158/78 H 113/65 117/79 Pulse Oximetry 97 97 97 05/19/18 11:00 05/19/18 12:00 05/19/18 12:43 Temperature 98.1 F Pulse Rate 72 66 70 Respiratory Rate 22 15 18 Blood Pressure 141/82 H 152/72 H 152/72 H Pulse Oximetry 96 96 97 05/19/18 13:00 05/19/18 14:00 05/19/18 15:00 Temperature Pulse Rate 76 76 66 Respiratory Rate 18 20 16 Blood Pressure 119/68 129/76 147/79 H Pulse Oximetry 97 98 95 05/19/18 16:00 05/19/18 17:00 05/19/18 17:44 Temperature 98 F Pulse Rate 66 78 86 Respiratory Rate 16 21 23 Blood Pressure 165/83 H 161/86 H Pulse Oximetry 95 96 96 05/19/18 18:00 05/19/18 18:01 Temperature Pulse Rate 86 Respiratory Rate 25 H Blood Pressure 143/84 H Pulse Oximetry Intake & Output 05/19/18 05/19/18 05/20/18 06:59 18:59 06:59 Intake Total 2717 / 2717 2327 / 2327 Output Total 1100 / 1100 Balance 1617 / 1617 2327 / 2327 Weight 98.8 kg Intake: IV 1916 / 1916 1966 / 1966 NS Inj 1,000 ML @ 42 mls/hr IV. 1000 / 1000 1000 / 1000 CONT .[id number] MONIK Rx#: [id number] Azactam Inj 2 GM In NS Inj 100 200 / 200 100 / 100 ML @ 200 mls/hr IV.SIG Q8H MONIK Rx#:[id number] Maxipime Inj 2,000 MG In NS Inj 200 / 200 100 / 100 100 ML @ 200 mls/hr IV.SIG Q8H MONIK Rx#:[id number] NS Inj 250 ML @ 15 mls/hr IV. 250 / 250 SIG ONCE MONIK Rx#:[id number] Vancomycin Inj 1,700 MG In NS 517 / 517 517 / 517 Inj 500 ML @ 250 mls/hr IV.SIG Q12H MONIK Rx#:[id number] Oral 360 / 360 Intake (Blood Product) Amt 800 / 800 Rbc As-3 Leukoreduced Unit 400 / 400 [id number] Rbc As-3 Leukoreduced Unit 400 / 400 [id number] Output: Urine 1100 / 1100 Other: # Voids 1 Date of Last Bowel Movement 05/17/18 05/17/18 # Bowel Movements 1 05/18/18 00:52 Clean Catch Urine Urine Culture - Preliminary No growth in 24 hours 05/17/18 16:05 Blood - Peripheral Aerobic Blood Culture - Preliminary No growth in 2 days 05/17/18 16:05 Blood - Peripheral Anaerobic Blood Culture - Preliminary Escherichia coli 05/17/18 16:05 Blood - Peripheral Aerobic Blood Culture - Preliminary No growth in 2 days 05/17/18 16:05 Blood - Peripheral Anaerobic Blood Culture - Preliminary No growth in 2 days 05/17/18 16:20 Nasal Wash Influenza Types A,B Antigen - Final Negative for FLU A and B antigen Infection due to influenza A or B cannot be ruled out since the antigen present in the sample may be below the detection limit of the test. Lab - Hematology Results 05/18/18 05/18/18 05/19/18 04:48 11:15 06:00 CBC w Diff Slide review pending Slide review pending WBC 1.1 L 1.6 L 1.9 L RBC 2.21 L 2.48 L 3.07 L Hgb 7.0 L 7.5 L 9.4 L Hct 20.0 L* 22.8 L 27.1 L MCV 90.6 91.8 88.3 D MCH 31.7 30.4 30.5 MCHC 35.0 33.1 34.6 RDW 20.0 H 19.9 H 19.7 H Plt Count 53 L D 62 L 76 L MPV 7.5 7.3 8.0 Neut % (Auto) 73.3 H Lymph % (Auto) 12.5 [place] % (Auto) 12.1 H Eos % (Auto) 0.4 Baso % (Auto) 1.7 Neut # (Auto) 1.5 L Lymph # (Auto) 0.2 L [place] # (Auto) 0.2 Eos # (Auto) 0.0 Baso # (Auto) 0.0 WBC Differential Manual diff final Manual diff final Seg Neuts % (Manual) 53 59 Band Neuts % (Manual) 12 H 15 H Lymphocytes % (Manual) 21 14 Monocytes % (Manual) 13 H 8 Eosinophils % (Manual) 1 Basophils % (Manual) 1 Metamyelocytes % (Man) 1 1 Myelocytes % (Man) 1 H Abs Neuts (Manual) 0.7 L 1.4 L Nucleated RBCs/100 WBC 1 H Differential Comment . . Platelet Estimate Low L Low L Platelet Morphology Normal Normal RBC Morphology Normal Dimorphic RBCs Present H Ovalocytes 1+ H Lab - Chemistry Results 05/17/18 05/18/18 05/18/18 23:00 04:48 11:15 Sodium 137 Potassium 3.4 L Chloride 106 D Carbon Dioxide 20.8 L Anion Gap 10 BUN 16 Creatinine 0.81 Estimated GFR Greater than 89 Random Glucose 102 Lactic Acid 1.4 0.9 Calcium 6.7 L* Prot Corrected Calcium 7.5 L Total Bilirubin 0.7 AST 17 ALT 23 Alkaline Phosphatase 89 Total Protein 5.5 L D Albumin 1.8 L 05/19/18 06:00 Sodium 139 Potassium 4.1 Chloride 109 H Carbon Dioxide 22.0 Anion Gap 8 BUN 14 Creatinine 0.76 Estimated GFR Greater than 89 Random Glucose 138 H Lactic Acid Calcium 7.4 L* Prot Corrected Calcium 7.7 L Total Bilirubin 0.5 AST 17 ALT 25 Alkaline Phosphatase 94 Total Protein 6.5 D Albumin 1.9 L Imaging: ITS Impressions Chest X-Ray 05/17/18 16:02 CONCLUSION: 1. There appear to be some nodular densities projecting over the right hemithorax, one in the superior perihilar distribution and an additional lesion medially in the right apex. I would recommend a contrasted CT scan of the chest for further evaluation. 2. Chronic interstitial changes with probable fibrosis in the left lung base. 3. Rounded 2 cm calcification in the left upper abdominal quadrant may be related to the spleen. This area can probably be evaluated on CT of the chest as well. Physical Exam: PHYSICAL EXAMINATION: GENERAL: No acute distress. Alert and oriented. HEENT: The head is atraumatic. Extraocular movements are grossly intact. Pupils reactive to light. No icterus. Oropharynx: Moist mucosa. No visible lesions. NECK: Supple without adenopathy. LUNGS: Bibasilar rhonchi. HEART: Regular S1 and S2 without murmurs, rubs or gallops. ABDOMEN: Bowel sounds present. Soft. No tenderness appreciated. EXTREMITIES: No clubbing, cyanosis or edema. SKIN: No rash. NEUROLOGIC: No gross focal finding. Alert and oriented. PSYCHIATRIC: Calm and cooperative. Assessment and Plan - Plan IMPRESSION: 1. Gram-negative sepsis due to Escherichia coli likely arising from urinary tract infection. 2. Urinary tract infection. 3. Fever and neutropenia. 4. Metastatic lung cancer. The patient is status post chemotherapy 5 days ago. RECOMMENDATIONS: 1. Stop aztreonam. 2. Continue cefepime. 3. Monitor the sensitivity of the bacteria in the blood. 4. Continue vancomycin in light of neutropenia. 5. Monitor temperature. 6. Monitor clinical response. If he continues to do well and he is afebrile and white count improved he may be able to go with p.o. Levaquin in a couple of days.
[2018-05-19] MEDS: Mirtazapine 15 MG Tablet PO SCH (21:39)
[2018-05-20] MEDS: Vancomycin Inj 1,700 MG in Sodium Chlor 0.9% Inj 500 ML IV.SIG SCH ×2 (00:37→17:51)
[2018-05-20] MEDS: Aztreonam Inj 2 GM in Sodium Chloride 0.9% Inj 100 ML IV.SIG SCH (03:14)
--- NOTE | 2018-05-20 06:07 | P.PN ---
Subjective Interval history: Feeling stronger. Reports good oral intake. Wants to go home when possible. Physical Exam Vital signs: Vital Signs 05/19/18 06:11 05/19/18 07:00 05/19/18 08:00 Temperature Pulse Rate 68 64 64 Respiratory Rate 17 16 19 Blood Pressure 150/78 H 160/79 H 158/78 H Pulse Oximetry 95 98 97 05/19/18 09:00 05/19/18 10:00 05/19/18 11:00 Temperature 97.7 F Pulse Rate 72 70 72 Respiratory Rate 25 H 24 22 Blood Pressure 113/65 117/79 141/82 H Pulse Oximetry 97 97 96 05/19/18 12:00 05/19/18 12:43 05/19/18 13:00 Temperature 98.1 F Pulse Rate 66 70 76 Respiratory Rate 15 18 18 Blood Pressure 152/72 H 152/72 H 119/68 Pulse Oximetry 96 97 97 05/19/18 14:00 05/19/18 15:00 05/19/18 16:00 Temperature 98 F Pulse Rate 76 66 66 Respiratory Rate 20 16 16 Blood Pressure 129/76 147/79 H 165/83 H Pulse Oximetry 98 95 95 05/19/18 17:00 05/19/18 17:44 05/19/18 18:00 Temperature Pulse Rate 78 86 Respiratory Rate 21 23 Blood Pressure 161/86 H 143/84 H Pulse Oximetry 96 96 05/19/18 18:01 05/19/18 19:44 05/19/18 20:00 Temperature Pulse Rate 86 74 Respiratory Rate 25 H 21 Blood Pressure 159/86 H Pulse Oximetry 98 97 05/19/18 21:00 05/19/18 22:00 05/20/18 00:00 Temperature Pulse Rate 70 76 76 Respiratory Rate 18 16 16 Blood Pressure 154/83 H 141/71 H 130/66 Pulse Oximetry 97 97 94 L 05/20/18 01:00 05/20/18 02:00 05/20/18 03:00 Temperature Pulse Rate 66 64 64 Respiratory Rate 21 14 18 Blood Pressure 161/77 H 161/82 H 175/87 H Pulse Oximetry 94 L 93 L 94 L 05/20/18 04:00 05/20/18 04:45 05/20/18 05:00 Temperature 98.3 F Pulse Rate 66 64 80 Respiratory Rate 17 16 20 Blood Pressure 171/95 H 186/98 H 92/65 L Pulse Oximetry 94 L 97 97 Intake & Output 05/19/18 05/19/18 05/20/18 06:59 18:59 06:59 Intake Total 2717 / 2717 2327 / 2327 817 / 817 Output Total 1100 / 1100 Balance 1617 / 1617 2327 / 2327 817 / 817 Weight 98.8 kg Intake: IV 1916 817 / 817 NS Inj 1,000 ML @ 42 mls/hr IV. 1000 / 1000 1000 / 1000 CONT .[id number] MONIK Rx#: [id number] Azactam Inj 2 GM In NS Inj 100 200 / 200 100 / 100 200 / 200 ML @ 200 mls/hr IV.SIG Q8H MONIK Rx#:[id number] Maxipime Inj 2,000 MG In NS Inj 200 / 200 100 / 100 100 / 100 100 ML @ 200 mls/hr IV.SIG Q8H MONIK Rx#:[id number] NS Inj 250 ML @ 15 mls/hr IV. 250 / 250 SIG ONCE MONIK Rx#:[id number] Vancomycin Inj 1,700 MG In NS 517 / 517 517 / 517 517 / 517 Inj 500 ML @ 250 mls/hr IV.SIG Q12H MONIK Rx#:[id number] Oral 360 / 360 Intake (Blood Product) Amt 800 / 800 Rbc As-3 Leukoreduced Unit 400 / 400 [id number] Rbc As-3 Leukoreduced Unit 400 / 400 [id number] Output: Urine 1100 / 1100 Other: # Voids 1 Date of Last Bowel Movement 05/17/18 05/17/18 05/19/18 # Bowel Movements 1 Narrative: GENERAL: Awake and alert. More conversant today. No acute distress. SKIN: Warm and dry. HEAD: Atraumatic. Normocephalic. EYES: Pupils equal and round. No scleral icterus. No injection or drainage. ENT: No nasal bleeding or discharge. Mucous membranes pink and moist. NECK: Trachea midline. No JVD. CARDIOVASCULAR: Regular rate and rhythm. RESPIRATORY: No accessory muscle use. Coarse breath sounds throughout but good air movement. No wheeze. GASTROINTESTINAL: Abdomen soft, non-tender, nondistended. Hepatic and splenic margins not palpable. MUSCULOSKELETAL: Extremities without clubbing, cyanosis, or edema. No obvious deformities. SCDs in place. NEUROLOGICAL: Awake and alert. No obvious cranial nerve deficits. Motor grossly within normal limits. Five out of 5 muscle strength in the arms and legs. Normal speech. PSYCHIATRIC: Appropriate mood and affect; insight and judgment normal. Results - Labs CBC & Chem 7: 05/19/18 06:00 05/19/18 06:00 Laboratory Results - last 24 hr 05/19/18 05/19/18 06:00 06:00 CBC w Diff Slide review pending WBC 1.9 L RBC 3.07 L Hgb 9.4 L Hct 27.1 L MCV 88.3 D MCH 30.5 MCHC 34.6 RDW 19.7 H Plt Count 76 L MPV 8.0 Neut % (Auto) 73.3 H Lymph % (Auto) 12.5 Kings % (Auto) 12.1 H Eos % (Auto) 0.4 Baso % (Auto) 1.7 Neut # (Auto) 1.5 L Lymph # (Auto) 0.2 L Kings # (Auto) 0.2 Eos # (Auto) 0.0 Baso # (Auto) 0.0 WBC Differential Manual diff final Seg Neuts % (Manual) 59 Band Neuts % (Manual) 15 H Lymphocytes % (Manual) 14 Monocytes % (Manual) 8 Eosinophils % (Manual) 1 Basophils % (Manual) 1 Metamyelocytes % (Man) 1 Myelocytes % (Man) 1 H Abs Neuts (Manual) 1.4 L Differential Comment . Platelet Estimate Low L Platelet Morphology Normal RBC Morphology Normal Sodium 139 Potassium 4.1 Chloride 109 H Carbon Dioxide 22.0 Anion Gap 8 BUN 14 Creatinine 0.76 Estimated GFR Greater than 89 Random Glucose 138 H Calcium 7.4 L* Prot Corrected Calcium 7.7 L Total Bilirubin 0.5 AST 17 ALT 25 Alkaline Phosphatase 94 Total Protein 6.5 D Albumin 1.9 L Microbiology 05/18/18 00:52 Clean Catch Urine Urine Culture - Preliminary No growth in 24 hours 05/17/18 16:05 Blood - Peripheral Aerobic Blood Culture - Preliminary No growth in 2 days 05/17/18 16:05 Blood - Peripheral Anaerobic Blood Culture - Preliminary Escherichia coli 05/17/18 16:05 Blood - Peripheral Aerobic Blood Culture - Preliminary No growth in 2 days 05/17/18 16:05 Blood - Peripheral Anaerobic Blood Culture - Preliminary No growth in 2 days Assessment and Plan - Assessment (1) Sepsis Code(s): A41.9 - Sepsis, unspecified organism Status: Acute Plan: Clinically improved. Continue IV antibiotics. Source likely urine. E. coli noted on one blood culture. Sensitivities pending. Appreciate ID input. Hopefully convert to Levaquin tomorrow or later today. (2) UTI (urinary tract infection) Code(s): N39.0 - Urinary tract infection, site not specified Status: Acute Plan: As above. Continue medication (3) Pancytopenia due to chemotherapy Code(s): D61.810 - Antineoplastic chemotherapy induced pancytopenia Status: Acute Plan: Improving. Appreciate hematology consult. Status post 2 units packed red cells. Today's labs are pending still. (4) Hypocalcemia Code(s): E83.51 - Hypocalcemia Status: Acute Plan: Likely associated with low albumin. Will correct orally and hopefully increase food intake will help. (5) Hypertension Code(s): I10 - Essential (primary) hypertension Status: Acute Plan: Blood pressure a bit elevated currently however BPs were quite low initially. BPs are elevated now. Use clonidine as needed. Add lisinopril as patient believes he takes this at home. Unclear as to what he actually takes given [facility] His has been asked to bring the bottles in for home medication review later this morning. (6) COPD (chronic obstructive pulmonary disease) Code(s): J44.9 - Chronic obstructive pulmonary disease, unspecified Status: Acute Plan: Continue duo nebs. Likely has some underlying pulmonary fibrosis as well. - Plan Code Status: full Discharge Planning: Hopefully next 1-2 days. Home with home health. (1) Sepsis Qualifiers: Sepsis type: sepsis due to unspecified organism Qualified Code(s): A41.9 - Sepsis, unspecified organism
[2018-05-20 06:12] LABS: Chloride 106 meq/L (98-107); Potassium 3.7 meq/L (3.5-5.1); Sodium 137 meq/L (136-145)
[2018-05-20 06:27] LABS: Alanine Aminotransferase 22 U/L (12-78); Albumin 1.9 g/dL (3.4-5.0); Alkaline Phosphatase 86 U/L (45-117); Anion Gap 10 meq/L (5-15); Aspartate Aminotransferase 13 U/L (15-37); Blood Urea Nitrogen 14 mg/dL (7-18); Calcium 7.4 mg/dL (8.5-10.1); Carbon Dioxide 20.8 meq/L (21.0-32.0); Glomerular Filtration Rate Greater Than 89 mL/min (>89); Glucose,Random 134 mg/dL (74-106); Total Protein 6.3 g/dL (6.4-8.2)
[2018-05-20 06:54] LABS: Baso # (Auto) 0.2 th/mm3 (0.0-0.2); Baso % (Auto) 4.8 % (0.0-2.0); Eos % (Auto) 0.1 % (0.0-4.0); Hemoglobin 9.4 gm/dL (13.0-17.0); Lymph # (Auto) 0.4 th/mm3 (1.0-4.8); Lymph % (Auto) 8.6 % (9.0-44.0); Mean Corpuscular HGB Conc 33.6 % (32.0-36.0); Mean Corpuscular Hemoglobin 30.3 pg (27.0-34.0); Mean Corpuscular Volume 90.2 fL (80.0-100.0); Mean Platelet Volume 8.4 fL (7.0-11.0); Mono # (Auto) 0.3 th/mm3 (0.0-0.9); Mono % (Auto) 6.5 % (0.0-8.0); Neut # (Auto) 3.8 th/mm3 (1.8-7.7); Platelet Count 72 th/mm3 (150-450); Red Cell Distribution Width 19.6 % (11.6-17.2)
[2018-05-20 07:00] LABS: White Blood Count 4.7 th/mm3 (4.0-11.0)
[2018-05-20 07:05] LABS: Lymphocytes 5 % (9-44); Metamyelocytes 1 % (0-1); Monocytes 4 % (0-8); Platelet Morphology Normal (Normal); RBC Morphology Normal (Normal); Toxic Granulation 1+
[2018-05-20] MEDS: Pantoprazole Sodium 20 MG DR Tablet PO SCH ×2 (08:28→20:02)
[2018-05-20] MEDS: Folic Acid 1 MG Tablet PO SCH (08:28)
[2018-05-20] MEDS: Lisinopril 20 MG Tablet PO SCH (08:28)
[2018-05-20] MEDS: Senna/Docusate Sodium 8.6/50 MG Tablet PO SCH ×2 (08:29→20:03)
[2018-05-20] MEDS: Sodium Chloride 0.9% 2 ML Flush BID IV.FLUSH SCH ×2 (08:31→20:03)
[2018-05-20] MEDS ORDERED: Pharmacy Ordered Lab Info OTHER ONE (12:45)
[2018-05-20] MEDS: levoFLOXacin 500 MG Tablet PO SCH (15:03)
[2018-05-20] MEDS: Mirtazapine 15 MG Tablet PO SCH (20:02)
[2018-05-20 21:24] VITALS: O2SAT 97
[2018-05-21 00:39] VITALS: TEMP 97
[2018-05-21] MEDS: Vancomycin Inj 1,700 MG in Sodium Chlor 0.9% Inj 500 ML IV.SIG SCH (03:45)
[2018-05-21] MEDS ORDERED: Pharmacy Ordered Lab Info OTHER ONE (06:00)
--- NOTE | 2018-05-21 06:26 | P.PN ---
Subjective Interval history: Feeling stronger. Desirous of d/c home today. Tolerating PO. Still some BP elevations. Physical Exam Vital signs: Vital Signs 05/20/18 06:21 05/20/18 07:00 05/20/18 08:00 Temperature Pulse Rate 64 62 62 Respiratory Rate 15 14 15 Blood Pressure 181/96 H 170/89 H 164/92 H Pulse Oximetry 92 L 95 94 L 05/20/18 08:19 05/20/18 09:00 05/20/18 10:00 Temperature Pulse Rate 72 62 Respiratory Rate 21 15 Blood Pressure 144/71 H 159/85 H Pulse Oximetry 94 L 95 95 05/20/18 11:00 05/20/18 12:00 05/20/18 13:00 Temperature 98.9 F Pulse Rate 64 64 66 Respiratory Rate 17 12 18 Blood Pressure 155/84 H 170/83 H 137/71 Pulse Oximetry 93 L 05/20/18 14:00 05/20/18 15:00 05/20/18 16:00 Temperature 98.5 F Pulse Rate 64 68 64 Respiratory Rate 14 15 16 Blood Pressure 167/85 H 160/82 H 149/71 H Pulse Oximetry 05/20/18 17:00 05/20/18 18:00 05/20/18 19:00 Temperature Pulse Rate 64 76 66 Respiratory Rate 15 18 18 Blood Pressure 150/68 H 135/70 132/69 Pulse Oximetry 98 05/20/18 20:00 05/20/18 20:22 05/20/18 21:00 Temperature Pulse Rate 62 64 Respiratory Rate 27 H 20 Blood Pressure 169/90 H 133/72 Pulse Oximetry 97 98 98 05/20/18 22:00 05/20/18 23:00 05/21/18 00:00 Temperature 97.0 F L Pulse Rate 62 60 68 Respiratory Rate 13 14 14 Blood Pressure 135/70 160/87 H 140/79 Pulse Oximetry 98 97 05/21/18 01:00 05/21/18 02:00 05/21/18 03:00 Temperature Pulse Rate 66 60 62 Respiratory Rate 13 15 14 Blood Pressure 117/64 121/65 145/72 H Pulse Oximetry 97 97 05/21/18 04:00 05/21/18 05:00 Temperature 97.0 F L Pulse Rate 68 76 Respiratory Rate 23 18 Blood Pressure 160/93 H 158/80 H Pulse Oximetry 97 97 Intake & Output 10/28/18 10/28/18 10/29/18 06:59 18:59 06:59 Intake Total 917 / 917 100 / 100 617 / 617 Output Total 1300 / 1300 500 / 500 1400 / 1400 Balance -383 / -383 -400 / -400 -783 / -783 Weight 95.6 kg 96 kg Intake: IV 917 / 917 100 / 100 617 / 617 Azactam Inj 2 GM In NS Inj 100 200 / 200 ML @ 200 mls/hr IV.SIG Q8H MONIK Rx#:[id number] Maxipime Inj 2,000 MG In NS Inj 200 / 200 100 / 100 100 / 100 100 ML @ 200 mls/hr IV.SIG Q8H MONIK Rx#:[id number] Vancomycin Inj 1,700 MG In NS 517 / 517 517 / 517 Inj 500 ML @ 250 mls/hr IV.SIG Q12H MONIK Rx#:[id number] Output: Urine 1300 / 1300 500 / 500 1400 / 1400 Other: Date of Last Bowel Movement 05/19/18 05/19/18 05/20/18 Narrative: GENERAL: Awake and alert. No acute distress. Cooperative. SKIN: Warm and dry. HEAD: Atraumatic. Normocephalic. EYES: Pupils equal and round. No scleral icterus. No injection or drainage. ENT: No nasal bleeding or discharge. Mucous membranes pink and moist. NECK: Trachea midline. No JVD. CARDIOVASCULAR: Regular rate and rhythm. No significant murmur appreciated. RESPIRATORY: No accessory muscle use. Coarse breath sounds throughout but good air movement. No wheeze or fine crackles. GASTROINTESTINAL: Abdomen soft, non-tender, nondistended. Hepatic and splenic margins not palpable. MUSCULOSKELETAL: Extremities without clubbing, cyanosis, or edema. No obvious deformities. NEUROLOGICAL: Awake and alert. No obvious cranial nerve deficits. Motor grossly within normal limits. Five out of 5 muscle strength in the arms and legs. Normal speech. PSYCHIATRIC: Appropriate mood and affect; insight and judgment normal. Results - Labs CBC & Chem 7: 05/20/18 05:50 05/20/18 05:50 Laboratory Results - last 24 hr 05/20/18 05/20/18 05/20/18 05:50 05:50 13:40 CBC w Diff Slide review pending WBC 4.7 D RBC 3.10 L Hgb 9.4 L Hct 28.0 L MCV 90.2 MCH 30.3 MCHC 33.6 RDW 19.6 H Plt Count 72 L MPV 8.4 Neut % (Auto) 80.0 H Lymph % (Auto) 8.6 L Preston % (Auto) 6.5 Eos % (Auto) 0.1 Baso % (Auto) 4.8 H Neut # (Auto) 3.8 Lymph # (Auto) 0.4 L Preston # (Auto) 0.3 Eos # (Auto) 0.0 Baso # (Auto) 0.2 WBC Differential Manual diff final Seg Neuts % (Manual) 71 H Band Neuts % (Manual) 19 H Lymphocytes % (Manual) 5 L Monocytes % (Manual) 4 Metamyelocytes % (Man) 1 Abs Neuts (Manual) 4.3 Differential Comment . Toxic Granulation 1+ H Platelet Estimate Low L Platelet Morphology Normal RBC Morphology Normal Carbon Dioxide 20.8 L Anion Gap 10 BUN 14 Creatinine 0.65 Estimated GFR Greater than 89 Random Glucose 134 H Calcium 7.4 L* Prot Corrected Calcium 7.8 L Total Bilirubin 0.3 AST 13 L ALT 22 Alkaline Phosphatase 86 Total Protein 6.3 L Albumin 1.9 L Vancomycin Trough 24.1 H Microbiology 05/17/18 16:05 Blood - Peripheral Aerobic Blood Culture - Preliminary No growth in 3 days 05/17/18 16:05 Blood - Peripheral Anaerobic Blood Culture - Final Escherichia coli 05/17/18 16:05 Blood - Peripheral Aerobic Blood Culture - Preliminary No growth in 3 days 05/17/18 16:05 Blood - Peripheral Anaerobic Blood Culture - Preliminary No growth in 3 days 05/18/18 00:52 Clean Catch Urine Urine Culture - Final No growth in 48 hours Assessment and Plan - Assessment (1) Sepsis Code(s): A41.9 - Sepsis, unspecified organism Status: Acute Plan: Clinically improved. Pansensitive E. coli noted on one blood culture. Converted to Levaquin. Appreciate ID input. d/c home with . Pt declines rehab placement. (2) UTI (urinary tract infection) Code(s): N39.0 - Urinary tract infection, site not specified Status: Acute Plan: As above. Continue medication (3) Pancytopenia due to chemotherapy Code(s): D61.810 - Antineoplastic chemotherapy induced pancytopenia Status: Acute Plan: Improving. Appreciate hematology consult. Status post 2 units packed red cells. Today's labs are pending still, but WBC back to wnl and Hb stable. (4) Hypocalcemia Code(s): E83.51 - Hypocalcemia Status: Acute Plan: Likely associated with low albumin. Will correct orally and hopefully increase food intake will help. (5) Hypertension Code(s): I10 - Essential (primary) hypertension Status: Acute Plan: Blood pressure a bit elevated currently however BPs were quite low initially. BPs are elevated now. Use clonidine as needed. Add lisinopril as patient believes he takes this at home. Unclear as to what he actually takes given [facility] His had been asked to bring the bottles in for home medication review. Reportedly med list brought in by , but can't locate on chart. Will call later this AM. (6) COPD (chronic obstructive pulmonary disease) Code(s): J44.9 - Chronic obstructive pulmonary disease, unspecified Status: Acute Plan: Continue duo nebs. Likely has some underlying pulmonary fibrosis as well. - Plan Discharge Planning: Hopefully d/c today. Home with home health. (1) Sepsis Qualifiers: Sepsis type: sepsis due to unspecified organism Qualified Code(s): A41.9 - Sepsis, unspecified organism
--- NOTE | 2018-05-21 06:28 | P.DCO ---
- Diagnosis (1) Sepsis Status: Acute (2) COPD (chronic obstructive pulmonary disease) Status: Chronic (3) Hx of brain cancer Status: Chronic (4) Pancytopenia due to chemotherapy Status: Acute - Physical Therapy Order: Evaluate and treat, Improve ambulation, Strength and gait training - Home Health Nursing Order: Signs/symptoms of disease process - Case Management Consult Yes - Certification I have seen patient Perry Garza on 05/21/18. My clinical findings support the need for the requested home health care services because: Limited mobility due to disease progression, Patient has SOB, Deconditioned with increased weakness, High risk of falls I certify that my clinical findings support that this patient is homebound because: Hx COPD - exertion dyspnea/weakness, Unsteady gait/balance (1) Sepsis Qualifiers: Sepsis type: sepsis due to unspecified organism Qualified Code(s): A41.9 - Sepsis, unspecified organism
--- NOTE | 2018-05-21 06:39 | P.DS ---
Date of admission: 05/17/18 18:55 Primary care physician: ANGÉLICA and Dr Gaffney Anticipated date of discharge: 05/21/18 Brief History from admission: This is a very pleasant 68 yo Male who was diagnosed with lung cancer in January 07. History is provided from the patient and his as well as [facility] plans; [place] records are not available at this time. He has been undergoing treatment with Dr. Nini Amador at the [facility]. He finished a treatment with chemotherapy last . but does not remember the name of the drug. He does remember that he was treated with Ketruda for about a year without side effects. 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 In it was discovered he brain brain metastasis which was treated with radiation. Yesterday he was feeling very week, had very little to drink and was not urinating much, so he went to the [place] where he reports they did a UA. When he came home from the clinic, he was unable to stand on his own, started to slide to the ground, however his son stopped him from falling. He then presented to the [facility] ED. UA was indicative of infection. He received azactam and gentamicin 2 L NS after BC were drawn. Initial lactic acid was 3.1. Over night he had been hypotensive, and he received an additional 3 boluses of 1 L NS overnight for hypotension. Lactic acid has now trended down to normal with stable blood pressure. He is on azactam and cefepime, and vancomycin has been added. He remains very weak, pancytopenic with hemoglobin of 7. Initial anaerobic blood culture has returned with gram negative rods. He also has history of rectal polypoid cancers and large polyps followed by Dr Kevin for 15 years with colonoscopies very 3-4 years (last 01/2017). Patient update on day of discharge: Pt much improved. Strength better and PO intake adequate. He has walked in room with PT. Desires d/c home not rehab. Pancytopenia has improved and hypotension resolved. DS: Diagnosis - Discharge Diagnosis (1) Sepsis Status: Acute (2) COPD (chronic obstructive pulmonary disease) Status: Chronic (3) Hx of brain cancer Status: Chronic (4) Pancytopenia due to chemotherapy Status: Acute (5) UTI (urinary tract infection) Status: Acute (6) Hypertension Status: Chronic (7) Hypocalcemia Status: Acute DS: Medications - Discharge Medications Prescriptions: calcium carbonate 500 mg CHEW BID #30 tab levofloxacin 500 mg PO DAILY #7 tab lisinopril 20 mg PO HS #31 tab DS: Summary Hospital Course: Pt admitted for urosepsis with pancytopenia likely a/w recent chemotx for metastatic lung CA. He had been receiving chemotx from [facility] in [place] and was directed to ER by his oncologist for low blood counts. He was found to be hypotensive with significant pancytopenia (WBC ct 1). He was placed on IVF, broad spectrum abx and admitted to ICU. One blood cltx was + for pansensitive Ecoli which was thought to arise from his urine. He continued to improve re: hypotension and never needed additional pressor support. He was transfused 2 units PRBC on hosp day 1 due to drop in Hb to 7. Hb remained stable subsequently. He also responded well to Neupogen. His vitals improved and remained stable subsequently. His strength improved. Will be d/c home on Levaquin for 1 week. Will adjust BP meds once home list available. - Time Spent with Patient Total time spent providing and/or coordinating discharge services: Less than 30 minutes - Quality: VTE Deep Vein Thrombosis/Pulmonary Embolism Present on Admission: No Exam Vital signs: Vital Signs 05/20/18 07:00 05/20/18 08:00 05/20/18 08:19 Temperature Pulse Rate 62 62 Respiratory Rate 14 15 Blood Pressure 170/89 H 164/92 H Pulse Oximetry 95 94 L 94 L 05/20/18 09:00 05/20/18 10:00 05/20/18 11:00 Temperature Pulse Rate 72 62 64 Respiratory Rate 21 15 17 Blood Pressure 144/71 H 159/85 H 155/84 H Pulse Oximetry 95 95 93 L 05/20/18 12:00 05/20/18 13:00 05/20/18 14:00 Temperature 98.9 F Pulse Rate 64 66 64 Respiratory Rate 12 18 14 Blood Pressure 170/83 H 137/71 167/85 H Pulse Oximetry 05/20/18 15:00 05/20/18 16:00 05/20/18 17:00 Temperature 98.5 F Pulse Rate 68 64 64 Respiratory Rate 15 16 15 Blood Pressure 160/82 H 149/71 H 150/68 H Pulse Oximetry 05/20/18 18:00 05/20/18 19:00 05/20/18 20:00 Temperature Pulse Rate 76 66 62 Respiratory Rate 18 18 27 H Blood Pressure 135/70 132/69 169/90 H Pulse Oximetry 98 97 05/20/18 20:22 05/20/18 21:00 05/20/18 22:00 Temperature Pulse Rate 64 62 Respiratory Rate 20 13 Blood Pressure 133/72 135/70 Pulse Oximetry 98 98 98 05/20/18 23:00 05/21/18 00:00 05/21/18 01:00 Temperature 97.0 F L Pulse Rate 60 68 66 Respiratory Rate 14 14 13 Blood Pressure 160/87 H 140/79 117/64 Pulse Oximetry 97 97 05/21/18 02:00 05/21/18 03:00 05/21/18 04:00 Temperature 97.0 F L Pulse Rate 60 62 68 Respiratory Rate 15 14 23 Blood Pressure 121/65 145/72 H 160/93 H Pulse Oximetry 97 97 05/21/18 05:00 05/21/18 06:00 Temperature Pulse Rate 76 84 Respiratory Rate 18 14 Blood Pressure 158/80 H 181/103 H Pulse Oximetry 97 97 Intake & Output 05/20/18 05/20/18 05/21/18 06:59 18:59 06:59 Intake Total 917 / 917 100 / 100 617 / 617 Output Total 1300 / 1300 500 / 500 1400 / 1400 Balance -383 / -383 -400 / -400 -783 / -783 Weight 95.6 kg 96 kg Intake: IV 917 / 917 100 / 100 617 / 617 Azactam Inj 2 GM In NS Inj 100 200 / 200 ML @ 200 mls/hr IV.SIG Q8H MONIK Rx#:[id number] Maxipime Inj 2,000 MG In NS Inj 200 / 200 100 / 100 100 / 100 100 ML @ 200 mls/hr IV.SIG Q8H MONIK Rx#:[id number] Vancomycin Inj 1,700 MG In NS 517 / 517 517 / 517 Inj 500 ML @ 250 mls/hr IV.SIG Q12H MONIK Rx#:[id number] Output: Urine 1300 / 1300 500 / 500 1400 / 1400 Other: Date of Last Bowel Movement 05/19/18 05/19/18 05/20/18 Results Procedures completed during hospitalization: none Labs on day of discharge: Labs from last 24 hours 05/20/18 05/20/18 05/20/18 13:40 05:50 05:50 CBC w Diff Slide review pending WBC 4.7 D RBC 3.10 L Hgb 9.4 L Hct 28.0 L MCV 90.2 MCH 30.3 MCHC 33.6 RDW 19.6 H Plt Count 72 L MPV 8.4 Neut % (Auto) 80.0 H Lymph % (Auto) 8.6 L Dickinson % (Auto) 6.5 Eos % (Auto) 0.1 Baso % (Auto) 4.8 H Neut # (Auto) 3.8 Lymph # (Auto) 0.4 L Dickinson # (Auto) 0.3 Eos # (Auto) 0.0 Baso # (Auto) 0.2 WBC Differential Manual diff final Seg Neuts % (Manual) 71 H Band Neuts % (Manual) 19 H Lymphocytes % (Manual) 5 L Monocytes % (Manual) 4 Metamyelocytes % (Man) 1 Abs Neuts (Manual) 4.3 Differential Comment . Toxic Granulation 1+ H Platelet Estimate Low L Platelet Morphology Normal RBC Morphology Normal Carbon Dioxide 20.8 L Anion Gap 10 BUN 14 Creatinine 0.65 Estimated GFR Greater than 89 Random Glucose 134 H Calcium 7.4 L* Prot Corrected Calcium 7.8 L Total Bilirubin 0.3 AST 13 L ALT 22 Alkaline Phosphatase 86 Total Protein 6.3 L Albumin 1.9 L Vancomycin Trough 24.1 H Preliminary micro results at discharge 05/17/18 16:05 Aerobic Blood Culture - Preliminary Blood - Peripheral No growth in 3 days 05/17/18 16:05 Aerobic Blood Culture - Preliminary Blood - Peripheral No growth in 3 days Anaerobic Blood Culture - Preliminary No growth in 3 days - Impressions ITS Impressions Chest X-Ray 05/17/18 16:02 CONCLUSION: 1. There appear to be some nodular densities projecting over the right hemithorax, one in the superior perihilar distribution and an additional lesion medially in the right apex. I would recommend a contrasted CT scan of the chest for further evaluation. 2. Chronic interstitial changes with probable fibrosis in the left lung base. 3. Rounded 2 cm calcification in the left upper abdominal quadrant may be related to the spleen. This area can probably be evaluated on CT of the chest as well. Discharge Plan - Discharge Disposition Patient Disposition: W/Home Health Service - Discharge Condition Condition: Fair - Discharge Order Discharge Orders: Discharge Order (Routine); Ordered 05/21/18 Ordered By: Dennis Lang - Discharge Details Anticipated Discharge Date: 05/21/18 - Physicians Team Primary Care Provider: Primary Care Toshia Newell Attending Provider: Jeanne Tai Other Providers: Nelly Pineda ; Marco Antonio Coley MD ; Nate Cates MD
[2018-05-21 08:03] VITALS: BP 136/79; PULSE 78; RESP 23
[2018-05-21] MEDS: Folic Acid 1 MG Tablet PO SCH (08:41)
[2018-05-21] MEDS: Pantoprazole Sodium 20 MG DR Tablet PO SCH (08:41)
[2018-05-21] MEDS: Senna/Docusate Sodium 8.6/50 MG Tablet PO SCH (08:42)
[2018-05-21] MEDS: Lisinopril 20 MG Tablet PO SCH (08:42)
[2018-05-21] MEDS: levoFLOXacin 500 MG Tablet PO SCH (08:42)
--- NOTE | 2018-05-21 20:56 | ECG ---
Date Performed: 05/17/2018 Time Performed: 16:18:27 PTAGE: 68 years EKG: SINUS TACHYCARDIA NONSPECIFIC ST & T-WAVE ABNORMALITY When compared to previous tracing, no nspecific ST-T wave Abnormalities in the lateral leads are now present. ABNORMAL RHYTHM ECG PREVIOUS TRACING : 02/19/2015 08.23 DOCTOR: Peter Bunch Interpretating Date/Time 05/21/2018 20:55:54
== END 2018-05-21 08:50 | disposition home health service (06) ==
LOC: PHED 15:27 → PHEDA 15:27 → PHICU 20:06
PROVIDERS: ADMIT Family Medicine; ATTEND Family Medicine